=== PATIENT | male | born 1990 | race Caucasian/White ===

== ENCOUNTER 2020-11-15 09:15 | Emergency (ER) | payer OTHER ==
[2020-11-15] MEDS ORDERED: LORazepam 1 MG TAB PO STA (09:45)
[2020-11-15] MEDS ORDERED: KETOROLAC 15 MG/ML 1 ML VIAL IVP STA (10:46)
[2020-11-15] MEDS ORDERED: diphenhydrAMINE 50 MG/ML 1 ML VIAL IVP STA (11:56)
--- NOTE | 2020-11-15 12:30 | ED ---
Anxiety HPI - General Chief Complaint: Anxiety Stated Complaint: Anxiety Time Seen by Provider: 11/15/20 09:24 Source: patient, EMS Mode of arrival: EMS - History of Present Illness Initial Comments: 30-year-old male history of OCD, PTSD, borderline personality disorder presenting to the ER today for chief complaint of insomnia. Patient states the past 3 nights she has not been SEEPING he states he's been very anxious and is upset with his neighbor. Patient states he does drink but doesnt feel like he is withdrawing stating "i am very familar with that feeling, i would be sweating, and have abdominal pain". He denies any headaches or hallucinations. He states he has had occasional nausea and episodes of vomiting which happens with these "panic attacks" or if he forgets to take his protonix which he states he did not take this mroning. Patient denies fevers, diarrhea, black/dark stools or bloody stools. Denies chest pain, dyspnea, dyspnea on exertion, leg swelling, jaundice. Patient states that he believes he just needs to sleep. Patient states he does have back pain, but states this is chronic lower midline. He states when he is anxious he feels all his chronic pains more and usually has worsening back pain during these attacks. Patient denies suicidal or homicidal ideations. Pt states he came in because he just needs to get some sleep> Remaining ROS (-). upon arrival patient does not appear acutely psychotic he is answering questions appropriately. - Related Data Home Medications: Home Medications Medication Instructions Recorded Confirmed Pantoprazole Sodium [Protonix] 40 mg PO DAILY 11/15/20 11/15/20 QUEtiapine [SEROquel] 400 mg PO HS 11/15/20 11/15/20 Vortioxetine Hydrobromide 5 mg PO HS 11/15/20 11/15/20 [Trintellix] Allergies/Adverse Reactions: Allergies Allergy/AdvReac Type Severity Reaction Status Date / Time No Known Allergies Allergy Verified 11/15/20 10:32 Review of Systems ROS Statement: Those systems with pertinent positive or pertinent negative responses have been documented in the HPI. ROS Other: All systems not noted in ROS Statement are negative. Past Medical History Past Medical History: GERD/Reflux Additional Past Medical History / Comment(s): migraines, OCD History of Any Multi-Drug Resistant Organisms: None Reported Past Surgical History: Appendectomy, Cholecystectomy, Hernia Repair, Tonsillectomy Past Psychological History: ADD/ADHD, Anxiety, Bipolar Smoking Status: Current every day smoker Past Alcohol Use History: Occasional Past Drug Use History: Marijuana General Exam - General Exam Comments Initial Comments: General: The patient is awake and alert, in no distress Eye: Pupils are equal, round and reactive to light, extra-ocular movements are intact. No nystagmus. There is normal conjunctiva bilaterally. No signs of icterus. Ears, nose, mouth and throat: There are moist mucous membranes and no oral lesions. Neck: The neck is supple, there is no tenderness or JVD. Cardiovascular: There is a regular rate and rhythm. No murmur, rub or gallop is appreciated. Respiratory: Lungs are clear to auscultation, respirations are non-labored, breath sounds are equal. No wheezes, stridor, rales, or rhonchi. Gastrointestinal: Soft, non-distended, non-tender abdomen without masses or organomegaly noted. There is no rebound or guarding present. No CVA tenderness Musculoskeletal: Some mild paraspinal tenderness to palpation fo the lumbar spine, remaining exam unremarkable, no midline tenderness. No bruising. No redness. Normal ROM, no tenderness. Strength 5/5 of the LE b/l. Sensation intact of the LE b/l-including the saddle region. Radial and DP pulses equal bilaterally 2+. Neurological: A&O x 3. CN II-XII intact grossly, There are no obvious motor or sensory deficits. Coordination appears grossly intact. Speech is normal. Skin: Skin is warm and dry and no rashes or lesions are noted. Psychiatric: Cooperative, appropriate mood & affect, normal judgment. Limitations: no limitations Course Vital Signs 11/15/20 11/15/20 09:23 14:29 Temperature 97.7 F 98 F Pulse Rate 74 86 Respiratory 22 20 Rate Blood Pressure 138/95 131/89 O2 Sat by Pulse 95 99 Oximetry - Reevaluation(s) Reevaluation #1: Episode of coffee ground appearing emesis. pt continues to deny physical complaints, aside from chronic low back pain. abdomen continues to be soft no ntender, no crepitus to palpation of chest wall. Patient states that he KNOWS he is not withdrawing. He states he does take protonix daily and has bad GERD that sometimes causes him to vomit. Missed dose today. 11/15/20 12:41 Medical Decision Making - Medical Decision Making Patient presenting for anxiety/insomnia. Patient has chronic back pain, states it is worse, Chrau flank pain/blood in urine. He states he has had an episode of vomiting today which happens when he gets worked up or doesnt take his protonix-which both are occurring today. Patient had one dark episode of vomiting but states it was the "pepsi" he was drinking. Gastric occult (-). HgB stable. No hypotension/tachycardia. Patient vomiting controlled. Pt does have mild hypokalemia/hypomagensium--both replaced orally. Anxiety improved. Evaluated by EPS who recommended discharge she is can go to his [facility] appointment. Patient agreeable to this care plan and prefers discharge at this time> Discussed case with Dr> Harish who is agreeable to this care plan. - Lab Data Result diagrams: 11/15/20 12:45 11/15/20 12:45 Lab Results 11/15/20 11/15/20 11/15/20 Range/Units 12:38 12:45 12:45 WBC 10.8 H (3.8-10.6) k/uL RBC 4.76 (4.30-5.90) m/uL Hgb 15.9 (13.0-17.5) gm/dL Hct 46.8 (39.0-53.0) % MCV 98.3 (80.0-100.0) fL MCH 33.4 (25.0-35.0) pg MCHC 33.9 (31.0-37.0) g/dL RDW 14.8 (11.5-15.5) % Plt Count 145 L (150-450) k/uL MPV 7.8 Neutrophils % 81 % Lymphocytes % 9 % Monocytes % 7 % Eosinophils % 1 % Basophils % 1 % Neutrophils # 8.8 H (1.3-7.7) k/uL Lymphocytes # 1.0 (1.0-4.8) k/uL Monocytes # 0.8 (0-1.0) k/uL Eosinophils # 0.1 (0-0.7) k/uL Basophils # 0.1 (0-0.2) k/uL PT (9.0-12.0) sec INR (<1.2) APTT (22.0-30.0) sec Sodium 135 L (137-145) mmol/L Potassium 3.1 L (3.5-5.1) mmol/L Chloride 93 L (98-107) mmol/L Carbon Dioxide 29 (22-30) mmol/L Anion Gap 13 mmol/L BUN 9 (9-20) mg/dL Creatinine 0.57 L (0.66-1.25) mg/dL Est GFR (CKD-EPI)AfAm >90 (>60 ml/min/1.73 sqM) Est GFR (CKD-EPI)NonAf >90 (>60 ml/min/1.73 sqM) Glucose 105 H (74-99) mg/dL Calcium 9.0 (8.4-10.2) mg/dL Magnesium (1.6-2.3) mg/dL Total Bilirubin 1.1 (0.2-1.3) mg/dL AST 191 H (17-59) U/L ALT 160 H (4-49) U/L Alkaline Phosphatase 128 H (38-126) U/L Total Protein 7.6 (6.3-8.2) g/dL Albumin 4.7 (3.5-5.0) g/dL Urine Color Yellow Urine Appearance Clear (Clear) Urine pH 6.5 (5.0-8.0) Ur Specific [place] 1.032 (1.001-1.035) Urine Protein 2+ H (Negative) Urine Glucose (UA) Negative (Negative) Urine Ketones 4+ H (Negative) Urine Blood Negative (Negative) Urine Nitrite Negative (Negative) Urine Bilirubin 1+ H (Negative) Urine Urobilinogen 4.0 (<2.0) mg/dL Ur Leukocyte Esterase Negative (Negative) Urine RBC 3 (0-5) /hpf Urine WBC 1 (0-5) /hpf Ur Squamous Epith Cells <1 (0-4) /hpf Hyaline Casts 1 (0-2) /lpf Urine Mucus Many H (None) /hpf Gastric Occult Blood (Negative) Urine Opiates Screen Detected H (NotDetected) Ur Oxycodone Screen Not Detected (NotDetected) Urine Methadone Screen Detected H (NotDetected) Ur Propoxyphene Screen Not Detected (NotDetected) Ur Barbiturates Screen Not Detected (NotDetected) U Tricyclic Antidepress Detected H (NotDetected) Ur Phencyclidine Scrn Not Detected (NotDetected) Ur Amphetamines Screen Not Detected (NotDetected) U Methamphetamines Scrn Not Detected (NotDetected) U Benzodiazepines Scrn Not Detected (NotDetected) Urine Cocaine Screen Detected H (NotDetected) U Marijuana (THC) Screen Detected H (NotDetected) 11/15/20 11/15/20 11/15/20 Range/Units 12:45 12:45 13:10 WBC (3.8-10.6) k/uL RBC (4.30-5.90) m/uL Hgb (13.0-17.5) gm/dL Hct (39.0-53.0) % MCV (80.0-100.0) fL MCH (25.0-35.0) pg MCHC (31.0-37.0) g/dL RDW (11.5-15.5) % Plt Count (150-450) k/uL MPV Neutrophils % % Lymphocytes % % Monocytes % % Eosinophils % % Basophils % % Neutrophils # (1.3-7.7) k/uL Lymphocytes # (1.0-4.8) k/uL Monocytes # (0-1.0) k/uL Eosinophils # (0-0.7) k/uL Basophils # (0-0.2) k/uL PT 10.5 (9.0-12.0) sec INR 1.0 (<1.2) APTT 23.0 (22.0-30.0) sec Sodium (137-145) mmol/L Potassium (3.5-5.1) mmol/L Chloride (98-107) mmol/L Carbon Dioxide (22-30) mmol/L Anion Gap mmol/L BUN (9-20) mg/dL Creatinine (0.66-1.25) mg/dL Est GFR (CKD-EPI)AfAm (>60 ml/min/1.73 sqM) Est GFR (CKD-EPI)NonAf (>60 ml/min/1.73 sqM) Glucose (74-99) mg/dL Calcium (8.4-10.2) mg/dL Magnesium 1.4 L (1.6-2.3) mg/dL Total Bilirubin (0.2-1.3) mg/dL AST (17-59) U/L ALT (4-49) U/L Alkaline Phosphatase (38-126) U/L Total Protein (6.3-8.2) g/dL Albumin (3.5-5.0) g/dL Urine Color Urine Appearance (Clear) Urine pH (5.0-8.0) Ur Specific [place] (1.001-1.035) Urine Protein (Negative) Urine Glucose (UA) (Negative) Urine Ketones (Negative) Urine Blood (Negative) Urine Nitrite (Negative) Urine Bilirubin (Negative) Urine Urobilinogen (<2.0) mg/dL Ur Leukocyte Esterase (Negative) Urine RBC (0-5) /hpf Urine WBC (0-5) /hpf Ur Squamous Epith Cells (0-4) /hpf Hyaline Casts (0-2) /lpf Urine Mucus (None) /hpf Gastric Occult Blood Negative (Negative) Urine Opiates Screen (NotDetected) Ur Oxycodone Screen (NotDetected) Urine Methadone Screen (NotDetected) Ur Propoxyphene Screen (NotDetected) Ur Barbiturates Screen (NotDetected) U Tricyclic Antidepress (NotDetected) Ur Phencyclidine Scrn (NotDetected) Ur Amphetamines Screen (NotDetected) U Methamphetamines Scrn (NotDetected) U Benzodiazepines Scrn (NotDetected) Urine Cocaine Screen (NotDetected) U Marijuana (THC) Screen (NotDetected) Disposition Clinical Impression: Anxiety, Chronic back pain, Insomnia, Vomiting, Cocaine abuse Disposition: HOME SELF-CARE Condition: Good Instructions (If sedation given, give patient instructions): Generalized Anxiety Disorder (ED), Insomnia (ED) Additional Instructions: Please use medication as discussed. Please follow-up with family doctor in the next 2 day. Please follow-up with Please return to emergency room if the symptoms increase or worsen or for any other concerns. Is patient prescribed a controlled substance at d/c from ED?: No Referrals: None,Stated [Primary Care Provider[facility] - [facility]-2 days Time of Disposition: 14:03
[2020-11-15] MEDS ORDERED: ONDANSETRON 4 MG/2 ML VIAL IVP STA (12:39)
[2020-11-15] MEDS ORDERED: PANTOPRAZOLE 40 MG/10 ML VIAL IVP STA (12:40)
[2020-11-15 12:59] LABS: Appearance,Urine Clear (Clear); Bilirubin,Urine 1+ (Negative); Blood,Urine Negative (Negative); Color,Urine Yellow; Glucose,Urine (UA) Negative (Negative); Hyaline Casts,Urine 1 /lpf (0-2); Ketones,Urine 4+ (Negative); Leukocyte Esterase,Urine Negative (Negative); Mucus,Urine Many /hpf; Nitrite,Urine Negative (Negative); PH, Urine 6.5 (5.0-8.0); Protein,Urine 2+ (Negative); RBC,Urine 3 /hpf (0-5); Specific Gravity,Urine 1.032 (1.001-1.035); Squamous Epithelial Cell,Urine <1 /hpf (0-4); WBC,Urine 1 /hpf (0-5)
[2020-11-15 13:04] LABS: Amphetamine Screen,Urine Not Detected (NotDetected); Barbiturate Screen,Urine Not Detected (NotDetected); Benzodiazepines Screen,Urine Not Detected (NotDetected); Cocaine Screen,Urine Detected (NotDetected); Methadone Screen, Urine Detected (NotDetected); Opiate Screen,Urine Detected (NotDetected); Oxycodone Screen, Urine Not Detected (NotDetected); Phencyclidine Screen,Urine Not Detected (NotDetected); Tricyclic Antidepressant,Urine Detected (NotDetected); Urn Cannabinoid Scrn Detected (NotDetected)
[2020-11-15 13:07] LABS: Prothrombin Time 10.5 sec (9.0-12.0)
[2020-11-15 13:13] LABS: ALT 160 U/L (4-49); AST 191 U/L (17-59); African American GFR (CKD) >90 (>60 ml/min/1.73 sqM); Albumin 4.7 g/dL (3.5-5.0); Alkaline Phosphatase 128 U/L (38-126); Anion Gap 13 mmol/L; Blood Urea Nitrogen 9 mg/dL (9-20); Carbon Dioxide 29 mmol/L (22-30); Chloride 93 mmol/L (98-107); Glucose 105 mg/dL (74-99); Non-African American GFR(CKD) >90 (>60 ml/min/1.73 sqM); Potassium 3.1 mmol/L (3.5-5.1); Sodium 135 mmol/L (137-145); Total Bilirubin 1.1 mg/dL (0.2-1.3); Total Protein 7.6 g/dL (6.3-8.2)
[2020-11-15 13:14] LABS: Basophils # (A) 0.1 k/uL (0-0.2); Basophils % (A) 1 %; Eosinophils # (A) 0.1 k/uL (0-0.7); Eosinophils % (A) 1 %; HCT 46.8 % (39.0-53.0); HGB 15.9 gm/dL (13.0-17.5); Lymphocytes % (A) 9 %; MCH 33.4 pg (25.0-35.0); MCHC 33.9 g/dL (31.0-37.0); MCV 98.3 fL (80.0-100.0); Mean Platelet Volume 7.8; Monocytes # (A) 0.8 k/uL (0-1.0); Monocytes % (A) 7 %; Neutrophils # (A) 8.8 k/uL (1.3-7.7); Neutrophils % (A) 81 %; Platelet Count 145 k/uL (150-450); RBC 4.76 m/uL (4.30-5.90); RDW 14.8 % (11.5-15.5); WBC 10.8 k/uL (3.8-10.6)
[2020-11-15] MEDS ORDERED: POTASSIUM CHLORIDE ER 20 MEQ TAB.ER PO STA (13:27)
[2020-11-15] MEDS ORDERED: SODIUM CHLORIDE 0.9% 1,000 ML IV ONE (13:37)
[2020-11-15] MEDS ORDERED: MAGNESIUM OXIDE 400 MG TAB PO STA (13:55)
[2020-11-15 14:31] VITALS: BP 131/89; PULSE 86; RESP 20; TEMP 98
== END 2020-11-15 14:31 | disposition home or self-care (01) ==
LOC: EC 09:15
DX: F41.9 Anxiety disorder, unspecified (principal); R11.10 Vomiting, unspecified; M54.9 Dorsalgia, unspecified; G89.29 Other chronic pain; G47.00 Insomnia, unspecified; F14.10 Cocaine abuse, uncomplicated; K21.9 Gastro-esophageal reflux disease without esophagitis; F31.9 Bipolar disorder, unspecified; F12.90 Cannabis use, unspecified, uncomplicated; F17.200 Nicotine dependence, unspecified, uncomplicated; Z90.49 Acquired absence of other specified parts of digestive tract; Z90.09 Acquired absence of other part of head and neck
CPT/HCPCS: 82075; 36415; 80053; 83735; 85025; 85610; 85730; 82271; 81001; 80306; 99283; 96361; 96374; 96375; J1200; J2405; J1885; C9113

== ENCOUNTER 2020-11-26 15:36 | Emergency (ER) | payer OTHER ==
[2020-11-26 16:09] VITALS: BP 155/98; PULSE 117; RESP 18; TEMP 97.9
--- NOTE | 2020-11-26 16:19 | ED ---
General Adult HPI - General Chief complaint: Recheck/Abnormal Lab/Rx Stated complaint: Nausea, Vomiting Time Seen by Provider: 11/26/20 16:12 Source: patient Mode of arrival: ambulatory Limitations: no limitations - History of Present Illness Initial comments: Dictation was produced using edenes dictation software. please excuse any gr ammatical, word or spelling errors. This patient was cared for during a federal and state declared state of emergency secondary to Covid 19 Chief Complaint: 30-year-old male presents for Protonix refill History of Present Illness: Patient is a 30-year-old male who recently moved to [place]. Patient states he has a prescription for Protonix. 640 mg daily. Patient states he has regular reflux symptoms. He is in the middle of changing primary care physicians. Patient has no medical complaints at this time. The ROS documented in this emergency department record has been reviewed and confirmed by me. Those systems with pertinent positive or negative responses have been documented in the HPI. All other systems are other negative and/or noncontributory. PHYSICAL EXAM: General Impression: Alert and oriented x3, not in acute distress HEENT: Normocephalic atraumatic, extra-ocular movements intact, pupils equal and reactive to light bilaterally, mucous membranes moist. Cardiovascular: Heart regular rate and rhythm Chest: Able to complete full sentences, no retractions, no tachypnea Abdomen: abdomen soft, non-tender, non-distended, no organomegaly Musculoskeletal: Pulses present and equal in all extremities, no peripheral edema Motor: no focal deficits noted Neurological: CN II-XII grossly intact, no focal motor or sensory deficits noted Skin: Intact with no visualized rashes Psych: Normal affect and mood ED course: [id number] Male presents for request for Protonix refill. Vital signs upon arrival are within acceptable limits. Physical examination is b enign. Patient given refill. Is also given referral to GI for outpatient management of his reflux symptoms. - Related Data Home Medications Medication Instructions Recorded Confirmed Pantoprazole Sodium [Protonix] 40 mg PO DAILY 11/15/20 11/15/20 QUEtiapine [SEROquel] 400 mg PO HS 11/15/20 11/15/20 Vortioxetine Hydrobromide 5 mg PO HS 11/15/20 11/15/20 [Trintellix] Previous Rx's Medication Instructions Recorded Pantoprazole Sodium [Protonix] 40 mg PO DAILY 24 Days #24 11/26/20 tablet. Allergies Allergy/AdvReac Type Severity Reaction Status Date / Time No Known Allergies Allergy Verified 11/26/20 16:05 Review of Systems ROS Statement: Those systems with pertinent positive or pertinent negative responses have been documented in the HPI. ROS Other: All systems not noted in ROS Statement are negative. Past Medical History Past Medical History: GERD/Reflux Additional Past Medical History / Comment(s): migraines, OCD History of Any Multi-Drug Resistant Organisms: None Reported Past Surgical History: Appendectomy, Cholecystectomy, Hernia Repair, Tonsillectomy Past Psychological History: ADD/ADHD, Anxiety, Bipolar Smoking Status: Current every day smoker Past Alcohol Use History: Occasional Past Drug Use History: Marijuana General Exam Limitations: no limitations Course Vital Signs 11/26/20 16:05 Temperature 97.9 F Pulse Rate 117 H Respiratory 18 Rate Blood Pressure 155/98 O2 Sat by Pulse 97 Oximetry Disposition Clinical Impression: Encounter for medication refill Disposition: HOME SELF-CARE Condition: Good Instructions (If sedation given, give patient instructions): Gastroesophageal Reflux Disease (ED) Prescriptions: Pantoprazole Sodium [Protonix] 40 mg PO DAILY 24 Days #24 tablet. Is patient prescribed a controlled substance at d/c from ED?: No Referrals: David Varghese MD [STAFF PHYSICIAN] - 1-2 days Time of Disposition: 16:19
== END 2020-11-26 16:30 | disposition home or self-care (01) ==
LOC: EC 15:36
DX: Z76.0 Encounter for issue of repeat prescription (principal); F41.9 Anxiety disorder, unspecified; F32.9 Major depressive disorder, single episode, unspecified; F17.200 Nicotine dependence, unspecified, uncomplicated; K21.9 Gastro-esophageal reflux disease without esophagitis
CPT/HCPCS: 99283

== ENCOUNTER 2021-02-15 09:34 | Emergency (ER) | payer OTHER ==
[2021-02-15] MEDS ORDERED: SODIUM CHLORIDE 0.9% 1,000 ML IV STA (10:05)
[2021-02-15 10:12] LABS: Glucose,Whole Blood 153 mg/dL (75-99)
--- NOTE | 2021-02-15 10:15 | ED ---
General Adult HPI - General Chief complaint: Fall Stated complaint: Syncope/Possible Seizures Time Seen by Provider: 02/15/21 09:55 Source: patient, EMS Mode of arrival: EMS Limitations: no limitations - History of Present Illness Initial comments: 30 year-old male patient presents to the emergency department for evaluation after possibly having a seizure. Patient was at the store. [employer] reports that he was about to check out when he "fainted", reportedly he did exhibit some body twitching, and was confused when he woke up. Patient did bite his lip and tongue. Denies any loss of bowel or bladder control. Patient denies ever having a seizure in the past. Does admit to drinking a pint of alcohol three times weekly. States he did have a pint of vodka at around 0800 this morning. He denies any current headache, blurred vision, double vision, nausea, or vomiting. Denies any recent diarrhea, fever, or chills. Denies chest pain or shortness of breath. Patient denies any recent rash, cough, shortness of breath, chest pain, abdominal pain, constipation, back pain, numbness, tingling, dizziness, weakness, hematuria, dysuria, urinary urgency, urinary frequency, or any other complaints. - Related Data Home Medications Medication Instructions Recorded Confirmed QUEtiapine FUMARATE [SEROquel] 600 mg PO HS 02/15/21 02/15/21 Vortioxetine Hydrobromide 20 mg PO HS 02/15/21 02/15/21 [Trintellix] Previous Rx's Medication Instructions Recorded Pantoprazole Sodium [Protonix] 40 mg PO DAILY 24 Days #24 11/26/20 tablet. Allergies Allergy/AdvReac Type Severity Reaction Status Date / Time No Known Allergies Allergy Verified 02/15/21 11:08 Review of Systems ROS Statement: Those systems with pertinent positive or pertinent negative responses have been documented in the HPI. ROS Other: All systems not noted in ROS Statement are negative. Past Medical History Past Medical History: GERD/Reflux, Seizure Disorder Additional Past Medical History / Comment(s): migraines, OCD History of Any Multi-Drug Resistant Organisms: None Reported Past Surgical History: Appendectomy, Cholecystectomy, Hernia Repair, Tonsillectomy Additional Past Surgical History / Comment(s): 7 hernias Past Psychological History: ADD/ADHD, Anxiety, Bipolar Smoking Status: Current every day smoker Past Alcohol Use History: Heavy, Occasional Past Drug Use History: Marijuana General Exam Limitations: no limitations General appearance: alert, in no apparent distress Eye exam: Present: normal appearance, PERRL, EOMI. Absent: scleral icterus, conjunctival injection, periorbital swelling ENT exam: Present: normal exam, normal oropharynx, mucous membranes moist Respiratory exam: Present: normal lung sounds bilaterally. Absent: respiratory distress, wheezes, rales, rhonchi, stridor Cardiovascular Exam: Present: regular rate, normal rhythm, normal heart sounds. Absent: systolic murmur, diastolic murmur, rubs, gallop, clicks GI/Abdominal exam: Present: soft, normal bowel sounds. Absent: distended, tenderness, guarding, rebound, rigid Neurological exam: Present: alert, oriented X3, CN II-XII intact Psychiatric exam: Present: normal affect, normal mood Skin exam: Present: warm, dry, intact, normal color. Absent: rash Course Vital Signs 02/15/21 02/15/21 09:38 11:32 Temperature 98.5 F 97.0 F L Pulse Rate 86 80 Respiratory 20 18 Rate Blood Pressure 143/93 139/103 O2 Sat by Pulse 94 L 96 Oximetry EKG Findings - EKG Comments: EKG Findings:: EKG obtained at 957 shows normal sinus rhythm with a prolonged QT interval. Ventricular is 72, MD interval 128, QRS duration 92, QTc 464, QTC 508. No evidence of ST elevation or depression. Medical Decision Making - Medical Decision Making 30 year-old male patient presented for syncope vs seizure. Physical exam is unremarkable. He is neurologically intact, no focal deficits. Labs reviewed and showed critically low potassium. Transaminitis. Normal magnesium. EKG showed prolonged QT interval. Plan was for admission for possible alcohol withdrawal seizure and hypokalemia. While waiting for test results patient did refuse all further care and treatment and left AGAINST MEDICAL ADVICE. I was not able to speak to the patient prior to his leaving however I did call him and informed him of his lab results, discussed his critically low potassium and discussed risk of possible arrhythmia and due to this. Patient stated, "I underst and, I'll come back another day but not today". I reiterated the risks of not returning. Patient again verbalized understanding. He is instructed to return as soon as possible for further care and treatment. Case discussed with my attending Dr. Cooper. - Lab Data Result diagrams: 02/15/21 10:11 02/15/21 10:11 Lab Results 02/15/21 02/15/21 02/15/21 Range/Units 10:05 10:11 10:11 WBC 7.6 (3.8-10.6) k/uL RBC 4.34 (4.30-5.90) m/uL Hgb 15.1 (13.0-17.5) gm/dL Hct 44.1 (39.0-53.0) % MCV 101.7 H (80.0-100.0) fL MCH 34.9 (25.0-35.0) pg MCHC 34.3 (31.0-37.0) g/dL RDW 13.9 (11.5-15.5) % Plt Count 82 L (150-450) k/uL MPV 9.2 Neutrophils % 79 % Lymphocytes % 10 % Monocytes % 9 % Eosinophils % 1 % Basophils % 1 % Neutrophils # 6.0 (1.3-7.7) k/uL Lymphocytes # 0.7 L (1.0-4.8) k/uL Monocytes # 0.7 (0-1.0) k/uL Eosinophils # 0.1 (0-0.7) k/uL Basophils # 0.1 (0-0.2) k/uL Manual Slide Review Performed Macrocytosis Slight Sodium 132 L (137-145) mmol/L Potassium 2.7 L* (3.5-5.1) mmol/L Chloride 88 L (98-107) mmol/L Carbon Dioxide 22 (22-30) mmol/L Anion Gap 22 mmol/L BUN 7 L (9-20) mg/dL Creatinine 0.56 L (0.66-1.25) mg/dL Est GFR (CKD-EPI)AfAm >90 (>60 ml/min/1.73 sqM) Est GFR (CKD-EPI)NonAf >90 (>60 ml/min/1.73 sqM) Glucose 145 H (74-99) mg/dL POC Glucose (mg/dL) 153 H (75-99) mg/dL POC Glu Manager Behavioral ID Giancarlo Melgar Calcium 8.8 (8.4-10.2) mg/dL Phosphorus 3.6 (2.5-4.5) mg/dL Magnesium 2.2 (1.6-2.3) mg/dL Total Bilirubin 2.3 H (0.2-1.3) mg/dL AST 300 H (17-59) U/L ALT 163 H (4-49) U/L Alkaline Phosphatase 230 H (38-126) U/L Total Protein 7.2 (6.3-8.2) g/dL Albumin 4.7 (3.5-5.0) g/dL Serum Alcohol <10 mg/dL Disposition Clinical Impression: Hypokalemia, Seizure, Transaminitis Disposition: Left Against Medical Advice Condition: Undetermined Referrals: None,Stated [Primary Care Provider] - 1-2 days
[2021-02-15] MEDS ORDERED: DIAZEPAM 5 MG/ML 2 ML INJ IVP STA ×2 (10:35→10:41)
[2021-02-15 10:51] LABS: African American GFR (CKD) >90 (>60 ml/min/1.73 sqM); Albumin 4.7 g/dL (3.5-5.0); Alcohol <10 mg/dL; Alkaline Phosphatase 230 U/L (38-126); Anion Gap 22 mmol/L; Basophils # (A) 0.1 k/uL (0-0.2); Basophils % (A) 1 %; Blood Urea Nitrogen 7 mg/dL (9-20); Calcium 8.8 mg/dL (8.4-10.2); Carbon Dioxide 22 mmol/L (22-30); Chloride 88 mmol/L (98-107); Eosinophils # (A) 0.1 k/uL (0-0.7); Eosinophils % (A) 1 %; Glucose 145 mg/dL (74-99); HCT 44.1 % (39.0-53.0); HGB 15.1 gm/dL (13.0-17.5); Lymphocytes # (A) 0.7 k/uL (1.0-4.8); Lymphocytes % (A) 10 %; MCH 34.9 pg (25.0-35.0); MCHC 34.3 g/dL (31.0-37.0); MCV 101.7 fL (80.0-100.0); Macrocytosis Slight; Magnesium 2.2 mg/dL (1.6-2.3); Mean Platelet Volume 9.2; Monocytes # (A) 0.7 k/uL (0-1.0); Monocytes % (A) 9 %; Neutrophils % (A) 79 %; Non-African American GFR(CKD) >90 (>60 ml/min/1.73 sqM); Phosphorus 3.6 mg/dL (2.5-4.5); RBC 4.34 m/uL (4.30-5.90); RDW 13.9 % (11.5-15.5); Sodium 132 mmol/L (137-145); Total Bilirubin 2.3 mg/dL (0.2-1.3); Total Protein 7.2 g/dL (6.3-8.2); WBC 7.6 k/uL (3.8-10.6)
[2021-02-15 11:05] LABS: ALT 163 U/L (4-49); AST 300 U/L (17-59); Potassium 2.7 mmol/L (3.5-5.1)
[2021-02-15 11:20] LABS: Platelet Count 82 k/uL (150-450)
[2021-02-15] MEDS ORDERED: Potassium Replacement Protocol 1 EACH MISC MISCELLANE PRN (11:24)
[2021-02-15] MEDS ORDERED: THIAMINE 100 MG/ML 2 ML VIAL IM STA (11:25)
[2021-02-15] MEDS ORDERED: LORazepam 2 MG/ML INJ IV PRN ×3 (11:25)
[2021-02-15 11:33] VITALS: BP 139/103; PULSE 80; RESP 18; TEMP 97
[2021-02-15] MEDS ORDERED: POTASSIUM CHLORIDE 10 MEQ in WATER FOR INJECTION 1 100ML.BAG IVPB SCH (12:00)
[2021-02-15] MEDS ORDERED: THIAMINE 100 MG TAB PO SCH (17:30)
== END 2021-02-15 11:42 | disposition left against medical advice (07) ==
LOC: EC 09:34
DX: E87.6 Hypokalemia (principal); R56.9 Unspecified convulsions; R74.01 Elevation of levels of liver transaminase levels; R55 Syncope and collapse; R41.0 Disorientation, unspecified; K21.9 Gastro-esophageal reflux disease without esophagitis; F17.200 Nicotine dependence, unspecified, uncomplicated; F12.90 Cannabis use, unspecified, uncomplicated; F41.9 Anxiety disorder, unspecified; F31.9 Bipolar disorder, unspecified
CPT/HCPCS: 36415; 80053; 80320; 83735; 84100; 85025; 93005; 96361; 96374; 99284

== ENCOUNTER 2021-05-04 10:25 | Inpatient (IN) | payer OTHER ==
[2021-05-04] MEDS ORDERED: LORazepam 2 MG/ML INJ IV PRN (10:43)
[2021-05-04] MEDS ORDERED: LORazepam 2 MG/ML INJ IV STA (10:43)
[2021-05-04] MEDS ORDERED: SODIUM CHLORIDE 0.9% 1,000 ML IV ONE (10:46)
--- NOTE | 2021-05-04 10:46 | ED ---
Psych HPI - General Chief Complaint: Psychiatric Symptoms Stated Complaint: mental health Time Seen by Provider: 05/04/21 10:34 Source: patient, RN notes reviewed Mode of arrival: wheelchair Limitations: no limitations - History of Present Illness Initial Comments: This a 30-year-old male present emergency from chief complaint of depression, suicidal ideation, alcohol abuse. Patient has not been feeling well possibly had a fall, seizure versus syncopal episode last night. Patient woke up with lip laceration, facial contusions and abrasions. He is unsure how this happened. He states he drinks multiple pints per day. Patient is brought to emergency department by [facility]. Patient does have a history of hypomagnesemia, hypokalemia, transaminitis. - Related Data Home Medications Medication Instructions Recorded Confirmed QUEtiapine FUMARATE [SEROquel] 600 mg PO HS 02/15/21 05/04/21 Vortioxetine Hydrobromide 20 mg PO HS 02/15/21 05/04/21 [Trintellix] Aspirin/Acetaminophen/Caffeine 1 tab PO DAILY PRN 05/04/21 05/04/21 [Excedrin Migraine Caplet] Mirtazapine [Remeron] 15 mg PO HS 05/04/21 05/04/21 Previous Rx's Medication Instructions Recorded Pantoprazole Sodium [Protonix] 40 mg PO DAILY 24 Days #24 11/26/20 tablet. Allergies Allergy/AdvReac Type Severity Reaction Status Date / Time No Known Allergies Allergy Verified 05/04/21 12:03 Review of Systems ROS Statement: Those systems with pertinent positive or pertinent negative responses have been documented in the HPI. ROS Other: All systems not noted in ROS Statement are negative. Past Medical History Past Medical History: GERD/Reflux, Seizure Disorder Additional Past Medical History / Comment(s): migraines, OCD History of Any Multi-Drug Resistant Organisms: None Reported Past Surgical History: Appendectomy, Cholecystectomy, Hernia Repair, Tonsillectomy Additional Past Surgical History / Comment(s): 7 hernias Past Psychological History: ADD/ADHD, Anxiety, Bipolar Smoking Status: Current every day smoker Past Alcohol Use History: Abuse, Daily, Heavy Past Drug Use History: Marijuana General Exam Limitations: no limitations General appearance: alert, in no apparent distress Head exam: Present: atraumatic, normocephalic, normal inspection Eye exam: Present: normal appearance, PERRL, EOMI. Absent: scleral icterus, conjunctival injection, periorbital swelling ENT exam: Present: normal oropharynx, mucous membranes moist. Absent: normal exam (Multiple facial abrasions, ecchymotic areas, small lip laceration superficial) Neck exam: Present: normal inspection. Absent: tenderness, meningismus, lymphadenopathy Respiratory exam: Present: normal lung sounds bilaterally. Absent: respiratory distress, wheezes, rales, rhonchi, stridor Cardiovascular Exam: Present: normal rhythm, tachycardia, normal heart sounds. Absent: systolic murmur, diastolic murmur, rubs, gallop, clicks GI/Abdominal exam: Present: soft, normal bowel sounds. Absent: distended, tenderness, guarding, rebound, rigid Course Vital Signs 05/04/21 05/04/21 05/04/21 10:28 12:27 12:34 Temperature 98.2 F 99.1 F Pulse Rate 125 H 99 Respiratory 20 16 Rate Blood Pressure 125/85 121/85 O2 Sat by Pulse 96 95 Oximetry Medical Decision Making - Medical Decision Making CT of brain, facial bones show no acute abnormality. Patient found to have hypokalemia, hyponatremia with alcoholic hepatitis. Patient was ordered potassium replacement, IV fluids was placed on CIWA with Ativan withdrawal protocol - Lab Data Result diagrams: 05/04/21 11:05 05/04/21 11:05 Lab Results 05/04/21 05/04/21 Range/Units 11:05 11:05 WBC 6.5 (3.8-10.6) k/uL RBC 4.08 L (4.30-5.90) m/uL Hgb 15.0 (13.0-17.5) gm/dL Hct 43.5 (39.0-53.0) % MCV 106.8 H (80.0-100.0) fL MCH 36.9 H (25.0-35.0) pg MCHC 34.6 (31.0-37.0) g/dL RDW 14.5 (11.5-15.5) % Plt Count 42 L (150-450) k/uL MPV 12.3 Neutrophils % 88 % Lymphocytes % 6 % Monocytes % 5 % Eosinophils % 0 % Basophils % 0 % Neutrophils # 5.7 (1.3-7.7) k/uL Lymphocytes # 0.4 L (1.0-4.8) k/uL Monocytes # 0.3 (0-1.0) k/uL Eosinophils # 0.0 (0-0.7) k/uL Basophils # 0.0 (0-0.2) k/uL Manual Slide Review Performed Hypochromasia Slight Poikilocytosis Slight Macrocytosis Moderate Sodium 127 L (137-145) mmol/L Potassium 2.7 L* (3.5-5.1) mmol/L Chloride 85 L (98-107) mmol/L Carbon Dioxide 30 (22-30) mmol/L Anion Gap 12 mmol/L BUN 4 L (9-20) mg/dL Creatinine 0.52 L (0.66-1.25) mg/dL Est GFR (CKD-EPI)AfAm >90 (>60 ml/min/1.73 sqM) Est GFR (CKD-EPI)NonAf >90 (>60 ml/min/1.73 sqM) Glucose 196 H (74-99) mg/dL Calcium 8.0 L (8.4-10.2) mg/dL Magnesium 1.5 L (1.6-2.3) mg/dL Total Bilirubin 3.1 H (0.2-1.3) mg/dL AST 481 H (17-59) U/L ALT 90 H (4-49) U/L Alkaline Phosphatase 489 H (38-126) U/L Total Protein 6.1 L (6.3-8.2) g/dL Albumin 3.4 L (3.5-5.0) g/dL Lipase 320 H (23-300) U/L Serum Alcohol <10 mg/dL - EKG Data -: EKG Interpreted by Nd EKG Comments: EKG performed at 12:41 sinus tachycardia rate of 113 NE 138 QRS 82 QT/QTC 376/515 Critical Care Time Critical Care Time: Yes Total Critical Care Time: 35 Disposition Clinical Impression: Depression, Hypomagnesemia, Hypokalemia, Alcohol withdrawal, Facial contusion, Alcoholic hepatitis Disposition: ADMITTED IP TO THIS [facility] Condition: Fair Referrals: None,Stated [REFERRING] - 1-2 days
[2021-05-04] MEDS ORDERED: SODIUM CHLORIDE 0.9% 1,000 ML with MVI, ADULT NO.4 WITH VIT K 10 ML, THIAMINE 100 MG, F... IV ONE ×4 (11:15)
--- NOTE | 2021-05-04 11:40 | CT ---
EXAMINATION TYPE: CT brain wo con DATE OF EXAM: 05/04/2021 COMPARISON: None HISTORY: Seizure per patient. Multiple facial injuries. CT DLP: 1379.4 mGycm. Automated Exposure Control for Dose Reduction was Utilized. TECHNIQUE: CT scan of the head is performed without contrast. FINDINGS: There is no acute intracranial hemorrhage, mass effect, or midline shift identified. The ventricles and sulci are within normal limits in size. The globes are intact and the visualized sin uses are clear. There is preseptal soft tissue edema overlying the left orbit. Craniocervical junction maintained. Sella turcica has a normal appearance. IMPRESSION: No acute intracranial hemorrhage, mass effect, or midline shift is seen.
--- NOTE | 2021-05-04 11:44 | CT ---
EXAMINATION TYPE: CT facial bones wo con DATE OF EXAM: 05/04/2021 COMPARISON: None HISTORY: Seizure per patient. Multiple facial injuries. CT DLP: 1375 mGycm Automated exposure control for dose reduction was used. TECHNIQUE: CT scan of the sinuses is performed without contrast, axial images are obtained, coronal r eformatted images are also reviewed. FINDINGS: The paranasal sinuses including the frontal, ethmoid, sphenoid, and maxillary sinuses bila terally are well-aerated without abnormal opacification. The ostiomeatal complex is patent bilateral ly on the coronal images. Visualized portion of mastoid air cells show no abnormal opacification. The globes are intact bilate rally. Difficult of the C1 posterior elements. Prevertebral soft tissue edema suspected overlying t he frontal bone and left orbit greater than right. Orbits are intact. Changes of chronic mild sinusit is. IMPRESSION: 1. No acute fracture.
[2021-05-04 11:48] LABS: Basophils % (A) 0 %; Eosinophils % (A) 0 %; HCT 43.5 % (39.0-53.0); Hypochromasia Slight; Lymphocytes # (A) 0.4 k/uL (1.0-4.8); Lymphocytes % (A) 6 %; MCH 36.9 pg (25.0-35.0); MCHC 34.6 g/dL (31.0-37.0); MCV 106.8 fL (80.0-100.0); Macrocytosis Moderate; Mean Platelet Volume 12.3; Monocytes # (A) 0.3 k/uL (0-1.0); Monocytes % (A) 5 %; Neutrophils # (A) 5.7 k/uL (1.3-7.7); Neutrophils % (A) 88 %; Poikilocytosis Slight; RBC 4.08 m/uL (4.30-5.90); RDW 14.5 % (11.5-15.5); WBC 6.5 k/uL (3.8-10.6)
[2021-05-04 11:58] LABS: ALT 90 U/L (4-49); AST 481 U/L (17-59); African American GFR (CKD) >90 (>60 ml/min/1.73 sqM); Albumin 3.4 g/dL (3.5-5.0); Alcohol <10 mg/dL; Alkaline Phosphatase 489 U/L (38-126); Anion Gap 12 mmol/L; Blood Urea Nitrogen 4 mg/dL (9-20); Carbon Dioxide 30 mmol/L (22-30); Chloride 85 mmol/L (98-107); Glucose 196 mg/dL (74-99); Lipase 320 U/L (23-300); Magnesium 1.5 mg/dL (1.6-2.3); Non-African American GFR(CKD) >90 (>60 ml/min/1.73 sqM); Sodium 127 mmol/L (137-145); Total Bilirubin 3.1 mg/dL (0.2-1.3); Total Protein 6.1 g/dL (6.3-8.2)
[2021-05-04 12:11] LABS: Potassium 2.7 mmol/L (3.5-5.1)
[2021-05-04] MEDS ORDERED: POTASSIUM CHLORIDE 40 MEQ in WATER FOR INJECTION 1 100ML.BAG IVPB STA (12:18)
[2021-05-04] MEDS ORDERED: POTASSIUM CHLORIDE ER 20 MEQ TAB.ER PO STA (12:23)
[2021-05-04 13:00] LABS: Platelet Count 42 k/uL (150-450)
[2021-05-04] MEDS ORDERED: MAGNESIUM SULFATE-D5W PMX 1 GM in DEXTROSE/WATER 1 100ML.BAG IVPB ONE (13:02)
[2021-05-04] MEDS ORDERED: ONDANSETRON 4 MG/2 ML VIAL IVP PRN (13:04)
[2021-05-04] MEDS ORDERED: NALOXONE 0.4 MG/ML 1 ML VIAL IV PRN (13:04)
[2021-05-04] MEDS: POTASSIUM CHLORIDE 20 MEQ in SODIUM CHLORIDE 0.9% 100 ML IVPB SCH ×2 (13:29→15:27)
[2021-05-04] MEDS ORDERED: DIPH,PERTUS(ACELL)TETVAC-LF 0.5 ML VIAL IM ONE (13:32)
[2021-05-04 14:14] LABS: Appearance,Urine Clear (Clear); Bilirubin,Urine Negative (Negative); Blood,Urine Negative (Negative); Color,Urine Yellow; Glucose,Urine (UA) Negative (Negative); Ketones,Urine Negative (Negative); Leukocyte Esterase,Urine Negative (Negative); Nitrite,Urine Negative (Negative); Protein,Urine Negative (Negative); Specific Gravity,Urine 1.006 (1.001-1.035)
[2021-05-04 14:39] LABS: Amphetamine Screen,Urine Not Detected (NotDetected); Benzodiazepines Screen,Urine Not Detected (NotDetected); Cocaine Screen,Urine Not Detected (NotDetected); Opiate Screen,Urine Not Detected (NotDetected); Phencyclidine Screen,Urine Not Detected (NotDetected); Urn Cannabinoid Scrn Detected (NotDetected)
[2021-05-04 14:40] LABS: Barbiturate Screen,Urine Not Detected (NotDetected); Methadone Screen, Urine Not Detected (NotDetected); Oxycodone Screen, Urine Not Detected (NotDetected); Tricyclic Antidepressant,Urine Detected (NotDetected)
[2021-05-04] MEDS: LORazepam 2 MG/ML INJ IV PRN ×2 (19:27→23:03)
[2021-05-05] MEDS: LORazepam 2 MG/ML INJ IV PRN ×7 (02:28→13:07)
[2021-05-05 09:51] LABS: Basophils % (A) 1 %; Eosinophils # (A) 0.1 k/uL (0-0.7); Eosinophils % (A) 2 %; HGB 13.6 gm/dL (13.0-17.5); Lymphocytes # (A) 1.2 k/uL (1.0-4.8); Lymphocytes % (A) 23 %; MCH 37.7 pg (25.0-35.0); Macrocytosis Moderate; Mean Platelet Volume 13.1; Monocytes # (A) 0.4 k/uL (0-1.0); Monocytes % (A) 8 %; Neutrophils # (A) 3.3 k/uL (1.3-7.7); Neutrophils % (A) 65 %; RBC 3.62 m/uL (4.30-5.90); RDW 13.5 % (11.5-15.5); WBC 5.1 k/uL (3.8-10.6)
[2021-05-05 09:53] LABS: ALT 72 U/L (4-49); AST 300 U/L (17-59); African American GFR (CKD) >90 (>60 ml/min/1.73 sqM); Albumin 2.8 g/dL (3.5-5.0); Alkaline Phosphatase 373 U/L (38-126); Anion Gap 5 mmol/L; Blood Urea Nitrogen 5 mg/dL (9-20); Calcium 8.1 mg/dL (8.4-10.2); Carbon Dioxide 29 mmol/L (22-30); Chloride 100 mmol/L (98-107); Globulin 2.7 g/dL; Glucose 99 mg/dL (74-99); Non-African American GFR(CKD) >90 (>60 ml/min/1.73 sqM); Potassium 3.2 mmol/L (3.5-5.1); Sodium 134 mmol/L (137-145); Total Bilirubin 2.8 mg/dL (0.2-1.3); Total Protein 5.5 g/dL (6.3-8.2)
[2021-05-05 11:20] LABS: Large Platelets Present; Platelet Count 38 k/uL (150-450)
--- NOTE | 2021-05-05 14:15 | P.CN ---
Psychiatric Consult - . Consult date: 05/05/21 Consult:: 05/05/21 14:14 IDENTIFYING DATA: This patient is a single, on Social Security, 30-year-old male who was admitted to the hospital for depression, suicidal ideation, and alcohol abuse. HISTORY OF PRESENT ILLNESS: The patient presented to the hospital on 05/04/21, brought to the emergency department on the recommendation of his case management social worker after the patient endorsed worsening depression and suicidal ideation. Furthermore, the patient most recently had a syncopal episode which resulted in multiple lacerations, abrasions, contusions on his face. The patient reports that his case management social worker was increasingly worried about his depression. Patient states that he has "always dealt with depression." He reports that for the past year, he has been expressing worsening depression with symptoms of decreased sleep, decreased appetite, feelings of hopelessness, helplessness, and decreased hygiene. Furthermore, the patient does admit that he had some suicidal ideation but no active intention or plan. He reports that he just had thoughts "that it would be better off if he was just not present." He denies any prior attempts at suicide. He does endorse significant symptoms of bipolar disorder. He reports that he would be awake for 3-4 days with little to no sleep. He does state that during these times, the patient does experience some manic symptoms including racing thoughts, impulsivity, and excessive spending. Prior to his presentation at the hospital, the patient is prescribed a regimen of trintellix, Remeron, and Seroquel. He reports that he was only taking the Seroquel as he felt like the other 2 medications provided no benefit at all. The patient is also facing eviction at the end of this month causing him elevated anxiety and depression. The patient reports that he was likely to go to a three quarter house at the recommendation of his therapist. The patient states that he would not like to be admitted to the psychiatric unit. He reports that he just wants to smoke a cigarette. He was informed that he is likely to be admitted involuntarily to which she responds that he would be "very angry if I was." The patient does report a significant history of traumatic brain injuries. He states that there have been multiple concussions when he was much younger. He denies any significant history of physical, sexual, or emotional abuse. PAST PSYCHIATRIC HISTORY: Patient has a history of depression, alcohol use disorder, opiate use disorder, and anxiety. The patient reports that he has been on "every antidepressant and every antianxiety medication there is." The patient reports that he has had 4 or 5 inpatient psychiatric admissions but is uncertain of when he was last admitted. The patient reports he has a case management social worker and therapist. Patient denies any history of suicide attempts in the past. PAST MEDICAL HISTORY: Past Medical History: GERD/Reflux, Seizure Disorder Additional Past Medical History / Comment(s): migraines, OCD History of Any Multi-Drug Resistant Organisms: None Reported Past Surgical History: Appendectomy, Cholecystectomy, Hernia Repair, Tonsillectomy Additional Past Surgical History / Comment(s): 7 hernias Past Psychological History: ADD/ADHD, Anxiety, Bipolar Smoking Status: Current every day smoker Past Alcohol Use History: Abuse, Daily, Heavy Past Drug Use History: Marijuana ALLERGIES: as per EMR. CHEMICAL DEPENDENCY HISTORY: The patient engages in heavy substance abuse. He reports he smokes 2-3 packs per day. The patient further consumes 1-2 pints of hard liquor per day. He also states that he has daily marijuana use. He has previously abused heroin and opiates but states that this has not been for many years. He states that he began using substances such as alcohol and marijuana when he was 8 years old. FAMILY PSYCHIATRIC/SUBSTANCE USE HISTORY: The patient reports that "everyone in my family has mental health problems." He reports no history of Suicide. SOCIAL HISTORY: Patient was born and raised in [place], [place]. He currently lives by himself but is being evicted at the end of this month. He has been intrusive into rehabilitation for heroin abuse but this was many years ago. He currently collects Social Security. He is single with no children.. MENTAL STATUS EXAM: General Appearance: Patient appears to be stated age is alert, obstinate and uncooperative. Patient appears to have very poor hygiene and grooming wearing hospital gown with poor eye contact. Behavior: Patient is calmly lying in bed without any agitated behavior. Eye contact is poor. Psychomotor activity is slow. Speech: Patient's speech is fluent and nonpressured. Spontaneous, monotone, slow to respond. Mood/Affect: Patient reports their mood is "depressed", affect is congruent, irritable, dysphoric. Suicidality/Homicidality: Patient denies having any suicidal or homicidal ideation intent or plan. Perceptions: Patient denies any visual hallucinations and denies any auditory hallucinations Though content/process: There is no evidence of any delusional thought content and thought process is linear and goal-directed. Memory and concentration: AOX3, grossly intact for the purposes of this session. Can spell "WORLD" backwards Judgment and insight: Poor Vital Signs Temp 98.5 F 05/05/21 11:22 Pulse 101 H 05/05/21 13:09 Resp 20 05/05/21 13:09 BP 132/56 05/05/21 13:09 Pulse Ox 99 05/05/21 13:09 Intake & Output 05/04/21 05/05/21 05/05/21 18:59 06:59 18:59 Output Total 950 800 Balance -950 -800 Weight 79.379 kg Output: Urine 950 800 Laboratory Results - Last 24 Hours 05/04/21 05/05/21 05/05/21 13:49 09:18 09:18 WBC 5.1 RBC 3.62 L Hgb 13.6 Hct 39.0 MCV 108.0 H MCH 37.7 H MCHC 35.0 RDW 13.5 Plt Count 38 L MPV 13.1 Neutrophils % 65 Lymphocytes % 23 Monocytes % 8 Eosinophils % 2 Basophils % 1 Neutrophils # 3.3 Lymphocytes # 1.2 Monocytes # 0.4 Eosinophils # 0.1 Basophils # 0.0 Manual Slide Review Performed Large Platelets Present Macrocytosis Moderate Sodium 134 L Potassium 3.2 L Chloride 100 Carbon Dioxide 29 Anion Gap 5 BUN 5 L Creatinine 0.47 L Est GFR (CKD-EPI)AfAm >90 Est GFR (CKD-EPI)NonAf >90 Glucose 99 Calcium 8.1 L Total Bilirubin 2.8 H AST 300 H ALT 72 H Alkaline Phosphatase 373 H Total Protein 5.5 L Albumin 2.8 L Globulin 2.7 Albumin/Globulin Ratio 1.0 Urine Opiates Screen Not Detected Ur Oxycodone Screen Not Detected Urine Methadone Screen Not Detected Ur Propoxyphene Screen Not Detected Ur Barbiturates Screen Not Detected U Tricyclic Antidepress Detected H Ur Phencyclidine Scrn Not Detected Ur Amphetamines Screen Not Detected U Methamphetamines Scrn Not Detected U Benzodiazepines Scrn Not Detected Urine Cocaine Screen Not Detected U Marijuana (THC) Screen Detected H IMPRESSIONS: Major depressive disorder, recurrent, severe, with anxious features Alcohol use disorder Cannabis use disorder Nicotine dependence PLAN: -At this time patient DOES meet criteria for inpatient psychiatric admission. The patient is endorsing significant symptoms of depression that is impeding his ability to attend to his ADLs. Furthermore, the patient is dealing with chronic suicidal ideation. -Delirium precautions recommended with patient including - avoiding use of narcotics and FRAME STYLIST sedatives, limit anticholinergic medications when possible, frequent re-orientation, minimize use of restraints, open window shades during the day and close them at night -Would recommend the following medication changes/additions: We'll restart some of the patient's medications including Remeron at 15 mg by mouth at bedtime for depression/insomnia/appetite stimulation and Seroquel 300 mg by mouth at bedtime for mood augmentation/stabilization/insomnia. We will hold Trintellix at this time due to concern for syncopal vs seizure episode. -CIWA protocol recommended with Ativan PRN. -Continue 1:1 sitter for safety -Cannot leave AMA at this time. Patient will need a petition and certification if attempting to leave AMA. -When medically stable, patient is eligible for transfer to a psych bed when available. -Psychiatry will sign off at this point, please contact with any questions. 05/05/21 14:14
[2021-05-05] MEDS ORDERED: LORazepam 1 MG TAB PO PRN (19:03)
[2021-05-05] MEDS ORDERED: QUEtiapine 100 MG TAB PO SCH (21:00)
[2021-05-05] MEDS ORDERED: MIRTAZAPINE 15 MG TAB PO SCH (21:00)
[2021-05-05] MEDS ORDERED: QUEtiapine 100 MG TAB PO ONE (21:45)
[2021-05-05] MEDS: NICOTINE 21MG/24HR PATCH TRANSDERM SCH (23:37)
[2021-05-06] MEDS: LORazepam 2 MG/ML INJ IV PRN ×4 (02:19→14:01)
[2021-05-06] MEDS: NICOTINE 21MG/24HR PATCH TRANSDERM SCH (08:54)
[2021-05-06 10:50] LABS: ALT 60 U/L (4-49); AST 187 U/L (17-59); African American GFR (CKD) >90 (>60 ml/min/1.73 sqM); Albumin 2.8 g/dL (3.5-5.0); Alkaline Phosphatase 409 U/L (38-126); Anion Gap 7 mmol/L; Blood Urea Nitrogen 6 mg/dL (9-20); Calcium 8.2 mg/dL (8.4-10.2); Carbon Dioxide 28 mmol/L (22-30); Chloride 102 mmol/L (98-107); Globulin 2.7 g/dL; Glucose 137 mg/dL (74-99); Non-African American GFR(CKD) >90 (>60 ml/min/1.73 sqM); Potassium 3.1 mmol/L (3.5-5.1); Sodium 137 mmol/L (137-145); Total Protein 5.5 g/dL (6.3-8.2)
[2021-05-06 13:32] VITALS: BP 144/94; PULSE 116; RESP 14; TEMP 98.2
--- NOTE | 2021-05-06 13:46 | P.CON ---
Consult Note - . Consult date: 05/06/21 Assessment/Plan:: Clinical Problems: Alcohol withdrawal, alcohol use disorder severe, rule out alcohol withdrawal seizure, alcohol induced mood disorder, cannabis use disorder, tobacco use disorder, Opiate use disorder severe sustained remission Interim history: I reviewed the medical record and interviewed the patient. He is a 30-year-old single male who has a history of an alcohol use disorder. His manager contracting brought him to the emergency department on 05/04/2021 with concerns about his well-being. According to the initial psychiatric storage management consultant he presented to the ED for worsening depression and suicidal ideation. However, during our interview the patient denied that he is experiencing suicidal ideation or worsening depression. He also specifically denied that he was currently having thoughts of or suicide. He was concerned about his alcohol use and believes that he experiences alcohol withdrawal seizure resulting in contusions and lacerations to his face. Note that his serum alcohol level was less than 10 on admission to the medical unit (supporting his history that he had stopped his all call use prior to his presentation). Overall, his other laboratory studies were consistent with chronic alcohol use including elevated bilirubin, AST, ALT, alkaline phosphatase lipase. He described chronic thoughts of that he attributed to the of his fiance from a heroin overdose several years ago. We verified through [employer] that he is actively engaged with services through community mental health. [employer] [facility] reported that his machine adjuster leader case trim brought him to the hospital because she was concerned about his uncontrolled alcohol use. He denied use of other drugs with the exception of marijuana and his UDS only positive for marijuana and tricyclic antidepressants (he is taking Seroquel at nighttime). He denied auditory, visual or olfactory hallucinations, ideas reference, thought insertion, thought casting or thought control. He denied history of suicide attempts or gestures. We discussed his alcohol use and alcohol use problems. He expressed interest in engaging in substance abuse services and would consider participation in another residential substance abuse treatment program (he has participated approximately 8 residential substance abuse treatment programs). He blamed that be have been in contact with [facility] who will follow him once he leaves the hospital Mental status exam: He presented as a somewhat disheveled appearing 30-year-old male with contusions and abrasions on his face. He made eye contact and appeared to attend to interview. He had a blunted facial expression. He has psychomotor retardation but no abnormal involuntary movements. Her speech was spontaneous with normal rate and rhythm. He was not dysarthric. His affect was anxious. He denied suicidal ideation, wishes homicidal ideation. He denied feeling hopeless, helpless or worthless. He ruminated about his living situation. Apparently he has been served an eviction notice and must be out of his apartment by the end of this month. He did not express ideas reference, paranoid ideation or delusions. His thinking was concrete but his associations were coherent and goal directed. He denied hallucinations did not appear to be responding to internal stimuli. Assessment: He has a chronic mental illness, chronic substance abuse problem. He is actively engaged in outpatient mental health and substance abuse services. I suspect that she incurred an alcohol withdrawal seizure prior to admission. He is denying depression or thoughts of harm to himself or others. There is no evidence of major mood or thought disturbances at this time. He does not currently meet judicial criteria for involuntary hospitalization and consented to a voluntary transfer to the psychiatric unit. Plan: Completed a negative clinical certificate. [facility] will contact him tomorrow. He has felt appointments with his therapist.
[2021-05-06] MEDS ORDERED: Potassium Replacement Protocol 1 EACH MISC MISCELLANE PRN (14:04)
[2021-05-06] MEDS: POTASSIUM CHLORIDE ER 20 MEQ TAB.ER PO SCH ×2 (14:14→15:04)
--- NOTE | 2021-05-06 19:31 | HP ---
HISTORY AND PHYSICAL DATE OF ADMISSION: 05/04/2021 CHIEF COMPLAINT: Acute alcohol intoxication with coma with a longstanding history of chronic alcoholism. He may also have had a seizure. HISTORY OF PRESENT ILLNESS: This is another admission this 30-year-old chronic alcoholic. He has been in and out of the emergency room frequently. He came back in acutely intoxicated with a history of possible seizure. He had some facial abrasions on the nose and right cheek. REVIEW OF SYSTEMS: Review of systems is unobtainable. He is not arousable. Past medical history, family history, and personal and social histories are not obtainable because he is not arousable. He has been in the office and HE DOES NOT HAVE ANY ALLERGIES. The only medication that he has been on is pantoprazole. He has had some problems with depression in the past. Surgically he has had an appendectomy and a cholecystectomy as well as hemorrhoidectomy and several hernia procedures. He does smoke. PHYSICAL EXAMINATION: Blood pressure is 130/80 with a pulse of 110, respirations of 12, and he is afebrile. In general he appeared to be well developed, well nourished, in no acute distress. Skin color is normal. Skin is warm and dry. Lymph nodes are not enlarged. Head, ears, eyes, nose and mouth were normal and neck veins did not appear to be distended. Chest was clear. Cardiac exam demonstrated sinus tachycardia. His abdomen was soft and nontender. Extremities seemed to be normal. Neurologically he is very lethargic. The only abnormal findings were abrasions on the nose and right cheek. He is admitted to the hospital with the diagnoses: 1. Acute alcohol intoxication. 2. Chronic alcoholism. 3. Possible alcohol-related seizure. PLAN: 1. Bedrest. 2. IV fluids. 3. Bedside sitter. MMODL / IJN: [id number] /
--- NOTE | 2021-05-06 19:36 | PN ---
PROGRESS NOTE DATE OF SERVICE: 05/05/2021 CHIEF COMPLAINT: Acute alcohol intoxication with seizure. HISTORY OF PRESENT ILLNESS: This gentleman is doing well. He is waking up and he is doing better. For some reason, he has been seen by Psychiatry, who has committed him. Patient states that he is not homicidal, suicidal, and he is not psychotic. PHYSICAL EXAMINATION: Chest is clear. Cardiac exam is normal. The abdomen is soft, nontender. IMPRESSION: 1. Acute alcohol intoxication. 2. Chronic alcoholism. 3. Facial abrasions. 4. Depression. PLAN: Increase activity and probably hold for another 24-48 hours on seizure precautions. MMODL / IJN: [id number] /
--- NOTE | 2021-05-06 19:41 | DS ---
DISCHARGE SUMMARY CHIEF COMPLAINT: Acute alcohol intoxication and coma with history of possible seizure. HISTORY OF PRESENT ILLNESS AND PHYSICAL EXAMINATION: Details of this man's history and physical can be found in the initial workup. LABORATORY STUDIES: While he was in the hospital he had laboratory studies, details of which can be found in the laboratory section of his chart. COURSE IN THE HOSPITAL: After admission he was placed on bedrest and started on intravenous fluids until he became more awake and alert. He was seen by Psychiatry. He has had a history of depression. For reasons which were not clear to me, the patient was committed. He became more awake and alert and was doing well on 05/06/2021. In my opinion, he did not seem to be psychotic or suicidal or homicidal. Psychiatry left a note that the patient voluntarily agreed to go to [facility]. Later I received notification from the psychiatrist that said that he could go home. Before he could be discharged, he signed out AMA. FINAL DIAGNOSIS: 1. Acute alcohol intoxication with coma. 2. Possible alcohol-related seizure. 3. Chronic alcoholism. 4. Depression. 5. Facial abrasions. 6. Hypokalemia. OPERATIONS: None. CONSULTATION: Psychiatry. He is improved. MMODL / IJN: [id number] /
== END 2021-05-06 16:24 | disposition left against medical advice (07) | DRG 894 ==
LOC: EC 10:25 → 5NMEDONC 13:18
PROVIDERS: ADMIT Family Medicine; ATTEND Family Medicine
DX: F10.229 Alcohol dependence with intoxication, unspecified (principal); R40.20 Unspecified coma; F33.2 Major depressive disorder, recurrent severe without psychotic features; R45.851 Suicidal ideations; E87.6 Hypokalemia; F17.200 Nicotine dependence, unspecified, uncomplicated; G40.909 Epilepsy, unspecified, not intractable, without status epilepticus; K21.9 Gastro-esophageal reflux disease without esophagitis; R74.01 Elevation of levels of liver transaminase levels; Z79.899 Other long term (current) drug therapy; S00.31XA Abrasion of nose, initial encounter; S00.81XA Abrasion of other part of head, initial encounter; S00.83XA Contusion of other part of head, initial encounter; S01.511A Laceration without foreign body of lip, initial encounter; Z79.82 Long term (current) use of aspirin; K70.10 Alcoholic hepatitis without ascites; F42.9 Obsessive-compulsive disorder, unspecified
CPT/HCPCS: 36415; 70450; 70486; 80053; 80306; 80320; 81003; 82075; 83690; 83735; 85025; 90715; 93005; 96365; 96366; 96375; 99291

== ENCOUNTER 2021-05-17 09:32 | Inpatient (IN) | payer OTHER ==
[2021-05-17] MEDS ORDERED: SODIUM CHLORIDE 0.9% 1,000 ML with MVI, ADULT NO.4 WITH VIT K 10 ML, THIAMINE 100 MG, F... IV ONE ×4 (09:38)
[2021-05-17] MEDS ORDERED: SODIUM CHLORIDE 0.9% 500 ML 500 ML IV ONE (09:38)
[2021-05-17] MEDS ORDERED: SODIUM CHLORIDE 0.9% 1,000 ML IV ONE ×2 (09:38→11:35)
--- NOTE | 2021-05-17 10:16 | ED ---
General Adult HPI - General Chief complaint: Alcohol Stated complaint: ETOH Time Seen by Provider: 05/17/21 09:35 Source: patient, EMS, RN notes reviewed, old records reviewed Mode of arrival: EMS - History of Present Illness Initial comments: This is a 30-year-old male who presents emergency department highly intoxicated. Counselor called EMS and EMS arrived patient had no complaints other than being extremely intoxicated. Patient was post to follow-up with rehabilitation Center today but obviously in his current state he was unable to do so. Patient denies any recent injury or trauma. Patient denies any chest pain difficulty breathing shortest breath per patient denies any recent fever chills per patient denies any vomiting nausea or diarrhea. Patient denies any abdominal pain. - Related Data Home Medications Medication Instructions Recorded Confirmed QUEtiapine FUMARATE [SEROquel] 600 mg PO HS 02/15/21 05/17/21 Vortioxetine Hydrobromide 20 mg PO HS 02/15/21 05/17/21 [Trintellix] Aspirin/Acetaminophen/Caffeine 1 tab PO DAILY PRN 05/04/21 05/17/21 [Excedrin Migraine Caplet] Mirtazapine [Remeron] 15 mg PO HS 05/04/21 05/17/21 Previous Rx's Medication Instructions Recorded Pantoprazole Sodium [Protonix] 40 mg PO DAILY 24 Days #24 11/26/20 tablet. Allergies Allergy/AdvReac Type Severity Reaction Status Date / Time No Known Allergies Allergy Verified 05/04/21 12:03 Review of Systems ROS Statement: Those systems with pertinent positive or pertinent negative responses have been documented in the HPI. ROS Other: All systems not noted in ROS Statement are negative. Past Medical History Past Medical History: GERD/Reflux, Seizure Disorder Additional Past Medical History / Comment(s): migraines, OCD History of Any Multi-Drug Resistant Organisms: None Reported Past Surgical History: Appendectomy, Cholecystectomy, Hernia Repair, Tonsillectomy Additional Past Surgical History / Comment(s): 7 hernias Past Anesthesia/Blood Transfusion Reactions: No Reported Reaction Past Psychological History: ADD/ADHD, Anxiety, Bipolar Smoking Status: Current every day smoker Past Alcohol Use History: Abuse, Daily, Heavy Past Drug Use History: Marijuana General Exam - General Exam Comments Initial Comments: GENERAL: Patient is well-developed and well-nourished. Patient is nontoxic and well- hydrated and is in no acute distress. Patient is highly intoxicated ENT: Neck is soft and supple. No significant lymphadenopathy is noted. Oropharynx is clear. Moist mucous membranes. Neck has full range of motion without eliciting any pain. EYES: The sclera were anicteric and conjunctiva were pink and moist. Extraocular movements were intact and pupils were equal round and reactive to light. Eyelids were unremarkable. PULMONARY: Unlabored respirations. Good breath sounds bilaterally. No audible rales rhonchi or wheezing was noted. CARDIOVASCULAR: There is a regular rate and rhythm without any murmurs gallops or rubs. ABDOMEN: Soft and nontender with normal bowel sounds. SKIN: Skin is clear with no lesions or rashes and otherwise unremarkable. NEUROLOGIC: Patient is alert and oriented x3. Cranial nerves II through XII are grossly intact. Motor and sensory are also intact. Normal speech, volume and content. Symmetrical smile. MUSCULOSKELETAL: Normal extremities with adequate strength and full range of motion. LYMPHATICS: No significant lymphadenopathy is noted PSYCHIATRIC: Normal psychiatric evaluation. Patient denies any suicidal ideations or attempts Course Vital Signs 05/17/21 09:34 Temperature 98.4 F Pulse Rate 98 Respiratory 18 Rate Blood Pressure 119/84 O2 Sat by Pulse 94 L Oximetry Medical Decision Making - Medical Decision Making I spoke with Dr. Urias he agreed to admit the patient admitted the patient wrote admitting orders. Patient was hypomagnesemic and there are placed some magnesium 2 g of magnesium sulfate I wrote orders and admitted the patient - Lab Data Result diagrams: 05/17/21 10:00 05/17/21 10:00 Lab Results 05/17/21 05/17/21 Range/Units 10:00 10:00 WBC 9.2 (3.8-10.6) k/uL RBC 4.49 (4.30-5.90) m/uL Hgb 16.6 D (13.0-17.5) gm/dL Hct 47.7 (39.0-53.0) % MCV 106.3 H (80.0-100.0) fL MCH 37.0 H (25.0-35.0) pg MCHC 34.8 (31.0-37.0) g/dL RDW 13.8 (11.5-15.5) % Plt Count 187 D (150-450) k/uL MPV 7.5 Neutrophils % 81 % Lymphocytes % 10 % Monocytes % 4 % Eosinophils % 1 % Basophils % 2 % Neutrophils # 7.5 (1.3-7.7) k/uL Lymphocytes # 0.9 L (1.0-4.8) k/uL Monocytes # 0.4 (0-1.0) k/uL Eosinophils # 0.1 (0-0.7) k/uL Basophils # 0.2 (0-0.2) k/uL Macrocytosis Moderate Sodium 142 (137-145) mmol/L Potassium 3.7 (3.5-5.1) mmol/L Chloride 105 (98-107) mmol/L Carbon Dioxide 24 (22-30) mmol/L Anion Gap 13 mmol/L BUN 4 L (9-20) mg/dL Creatinine 0.56 L (0.66-1.25) mg/dL Est GFR (CKD-EPI)AfAm >90 (>60 ml/min/1.73 sqM) Est GFR (CKD-EPI)NonAf >90 (>60 ml/min/1.73 sqM) Glucose 104 H (74-99) mg/dL Calcium 7.6 L (8.4-10.2) mg/dL Magnesium 1.6 (1.6-2.3) mg/dL Total Bilirubin 1.4 H (0.2-1.3) mg/dL AST 409 H (17-59) U/L ALT 112 H (4-49) U/L Alkaline Phosphatase 404 H (38-126) U/L Total Protein 5.9 L (6.3-8.2) g/dL Albumin 3.2 L (3.5-5.0) g/dL Serum Alcohol 524 H* mg/dL Disposition Clinical Impression: Alcoholic intoxication, Hypomagnesemia Disposition: ADMITTED IP TO THIS HOSP Referrals: Bigg Paula MD [Primary Care Provider] - 1-2 days Time of Disposition: 11:35
[2021-05-17 10:22] LABS: Basophils # (A) 0.2 k/uL (0-0.2); Basophils % (A) 2 %; Eosinophils # (A) 0.1 k/uL (0-0.7); Eosinophils % (A) 1 %; HCT 47.7 % (39.0-53.0); Lymphocytes # (A) 0.9 k/uL (1.0-4.8); Lymphocytes % (A) 10 %; MCHC 34.8 g/dL (31.0-37.0); MCV 106.3 fL (80.0-100.0); Macrocytosis Moderate; Mean Platelet Volume 7.5; Monocytes # (A) 0.4 k/uL (0-1.0); Monocytes % (A) 4 %; Neutrophils # (A) 7.5 k/uL (1.3-7.7); Neutrophils % (A) 81 %; RBC 4.49 m/uL (4.30-5.90); RDW 13.8 % (11.5-15.5); WBC 9.2 k/uL (3.8-10.6)
[2021-05-17 10:23] LABS: HGB 16.6 gm/dL (13.0-17.5); Platelet Count 187 k/uL (150-450)
[2021-05-17 10:52] LABS: ALT 112 U/L (4-49); AST 409 U/L (17-59); African American GFR (CKD) >90 (>60 ml/min/1.73 sqM); Albumin 3.2 g/dL (3.5-5.0); Alkaline Phosphatase 404 U/L (38-126); Anion Gap 13 mmol/L; Blood Urea Nitrogen 4 mg/dL (9-20); Calcium 7.6 mg/dL (8.4-10.2); Carbon Dioxide 24 mmol/L (22-30); Chloride 105 mmol/L (98-107); Glucose 104 mg/dL (74-99); Magnesium 1.6 mg/dL (1.6-2.3); Non-African American GFR(CKD) >90 (>60 ml/min/1.73 sqM); Potassium 3.7 mmol/L (3.5-5.1); Sodium 142 mmol/L (137-145); Total Bilirubin 1.4 mg/dL (0.2-1.3); Total Protein 5.9 g/dL (6.3-8.2)
[2021-05-17 11:11] LABS: Alcohol 524 mg/dL
[2021-05-17] MEDS ORDERED: THIAMINE 100 MG/ML 2 ML VIAL IM STA (11:36)
[2021-05-17] MEDS ORDERED: LORazepam 2 MG/ML INJ IV PRN (11:36)
[2021-05-17] MEDS: LORazepam 2 MG/ML INJ IV PRN ×5 (12:08→23:32)
[2021-05-17] MEDS: MAGNESIUM SULFATE-D5W PMX 1 GM in DEXTROSE/WATER 1 100ML.BAG IVPB SCH ×2 (13:57→15:20)
[2021-05-17] MEDS: THIAMINE 100 MG TAB PO SCH (17:38)
[2021-05-17 17:54] LABS: ALT 101 U/L (4-49); AST 344 U/L (17-59); African American GFR (CKD) >90 (>60 ml/min/1.73 sqM); Albumin 2.8 g/dL (3.5-5.0); Alkaline Phosphatase 361 U/L (38-126); Anion Gap 8 mmol/L; Blood Urea Nitrogen 3 mg/dL (9-20); Calcium 6.5 mg/dL (8.4-10.2); Carbon Dioxide 23 mmol/L (22-30); Chloride 105 mmol/L (98-107); Glucose 127 mg/dL (74-99); Non-African American GFR(CKD) >90 (>60 ml/min/1.73 sqM); Potassium 3.4 mmol/L (3.5-5.1); Sodium 136 mmol/L (137-145); Total Bilirubin 1.5 mg/dL (0.2-1.3); Total Protein 5.4 g/dL (6.3-8.2)
--- NOTE | 2021-05-17 18:47 | HP ---
HISTORY AND PHYSICAL I am covering for Dr. Paula. DATE OF SERVICE: 05/17/2021 HISTORY OF PRESENT ILLNESS: This 30-year-old gentleman with a past medical history of GERD, seizure disorder, migraine, OCD, history of cholecystectomy, ADHD, anxiety, bipolar, being followed by Dr. Paula in the outpatient setting, apparently was drinking 2-3 pints of alcohol a day. The patient presented to emergency room highly intoxicated. The counselor called EMS and EMS brought the patient to [facility]. The patient is extremely intoxicated, though confused and conscious. The patient was admitted for evaluation and treatment. The alcohol level was found to be 524. A detailed history cannot be taken from the patient because he is drowsy on and off. Multiple lab abnormalities were noted. PAST MEDICAL HISTORY: History of GERD, history seizure disorder, migraine, OCD, appendectomy, cholecystomy, ADD, ADHD, anxiety, bipolar. MEDICATIONS: Home medications prior to admission include Trintellix, Seroquel, Protonix, Remeron, Excedrin. ALLERGIES: NONE. Family history, social history, review of systems could not be taken; the patient is rather drowsy. Hypertension and myocardial infarction in family history per chart. PHYSICAL EXAMINATION: Pulse is 111, blood pressure 125/82, respiration 18, temperature 98 degrees, pulse ox 94% on room air. HEENT: Conjunctivae normal. NECK: No jugular venous distention. CARDIOVASCULAR: S1, S2 muffled. RESPIRATION: Breath sounds diminished at the bases. A few scattered rhonchi and crackles. ABDOMEN: Soft, nontender. No mass palpable. LEGS: No edema. No swelling. NERVOUS SYSTEM: Full exam cannot be done. SKIN: No ulcer, rash, bleeding. JOINTS: No active deforming arthropathy. LYMPHATICS: No lymph node palpable in neck, axillae or groin. LABS: WBC 9.3, hemoglobin 16.6 and MCV 106. Sodium 142, potassium 3.7, and calcium is 7.6. Total bilirubin is 1.4, AST is 409, ALT is 112, alkaline phosphatase is 404 and serum alcohol 525. ASSESSMENT: 1. Acute alcohol intoxication. 2. Change in mental status, acute metabolic and toxic encephalopathy secondary to alcohol. 3. Acute alcoholic hepatitis. 4. Gastroesophageal reflux disease. 5. History of seizure disorder. 6. Migraine and OCD. 7. History of cholecystectomy. 8. Attention deficit disorder, attention deficit hyperactivity disorder, anxiety, bipolar. 9. Borderline personality disorder. 10.History of nicotine dependence. 11.History of THC. RECOMMENDATIONS AND DISCUSSION: In this is a 30-year-old gentleman who presented with multiple complex medical issues, we will monitor the patient closely, continue the current medications, continue symptomatic treatment. We will initiate CIWA protocol. Watch for any withdrawal symptoms. Resume the home medications. Guarded prognosis because of multiple complex medical issues. Patient will need alcohol rehab. political worker and Case Management to follow. A copy of this dictation is being forwarded to Dr. Paula, who is the primary physician. MMJATINDERL / HARRIETN: [id number] /
[2021-05-17] MEDS: MIRTAZAPINE 15 MG TAB PO SCH (20:54)
[2021-05-17] MEDS: QUEtiapine 200 MG TAB PO SCH (20:54)
[2021-05-17] MEDS: HEPARIN SODIUM,PORCINE/PF 5,000 UNIT/0.5 ML SYRINGE SQ SCH (20:54)
[2021-05-17] MEDS: VORTIOXETINE HYDROBROMIDE 20 MG TABLET PO SCH (20:54)
[2021-05-18] MEDS ORDERED: ONDANSETRON 4 MG/2 ML VIAL IVP PRN (00:52)
[2021-05-18] MEDS ORDERED: QUEtiapine 200 MG TAB PO STA (00:56)
[2021-05-18] MEDS: ACETAMINOPHEN TAB 500 MG TAB PO PRN ×2 (01:30→08:26)
[2021-05-18] MEDS: LORazepam 2 MG/ML INJ IV PRN ×11 (02:44→23:28)
[2021-05-18] MEDS: THIAMINE 100 MG TAB PO SCH ×2 (06:30→14:57)
[2021-05-18] MEDS: PANTOPRAZOLE 40 MG TABLET PO SCH (06:30)
[2021-05-18 08:18] LABS: Basophils % (A) 0 %; Eosinophils % (A) 0 %; HCT 37.2 % (39.0-53.0); Lymphocytes # (A) 0.6 k/uL (1.0-4.8); Lymphocytes % (A) 8 %; MCH 38.3 pg (25.0-35.0); MCHC 36.1 g/dL (31.0-37.0); MCV 106.2 fL (80.0-100.0); Macrocytosis Moderate; Mean Platelet Volume 8.4; Monocytes # (A) 0.2 k/uL (0-1.0); Monocytes % (A) 3 %; Neutrophils # (A) 6.6 k/uL (1.3-7.7); Neutrophils % (A) 88 %; RDW 13.5 % (11.5-15.5); WBC 7.6 k/uL (3.8-10.6)
[2021-05-18 08:23] LABS: HGB 13.4 gm/dL (13.0-17.5)
[2021-05-18] MEDS: HEPARIN SODIUM,PORCINE/PF 5,000 UNIT/0.5 ML SYRINGE SQ SCH ×2 (08:28→20:37)
[2021-05-18] MEDS ORDERED: diazePAM 5 MG TAB PO PRN (11:11)
[2021-05-18 11:43] LABS: Platelet Count 84 k/uL (150-450)
[2021-05-18] MEDS: MULTIVITAMINS, THERA 1 EACH TAB PO SCH (14:57)
[2021-05-18] MEDS: FOLIC ACID 1 MG TAB PO SCH (14:57)
[2021-05-18] MEDS: ASPIRIN-ACET-CAFF 250-250-65MG 1 EACH TAB PO PRN (14:58)
[2021-05-18] MEDS ORDERED: Magnesium Replacement Protocol 1 EACH MISC MISCELLANE PRN (19:55)
[2021-05-18] MEDS ORDERED: Potassium Replacement Protocol 1 EACH MISC MISCELLANE PRN (19:55)
[2021-05-18] MEDS: VORTIOXETINE HYDROBROMIDE 20 MG TABLET PO SCH (20:37)
[2021-05-18] MEDS: METOPROLOL TARTRATE 12.5 MG TAB PO SCH (20:37)
[2021-05-18] MEDS: MIRTAZAPINE 15 MG TAB PO SCH (20:37)
--- NOTE | 2021-05-18 20:52 | XR ---
EXAMINATION: XR chest 1V portable DATE AND TIME: 05/18/2021 8:25 PM CLINICAL INDICATION: PHH; chf TECHNIQUE: AP portable upright COMPARISON: None FINDINGS: There is prominent elevation of the right hemidiaphragm, etiology unclear. This does not allow visual ization of the lower one half of the right lung parenchyma. There is a horizontal linear band of added opacity, over this elevated hemidiaphragm, consistent with discoid subsegmental atelectasis. On the contralateral left, there are 2 horizontally oriented small linear bands of added opacity consistent with discoid subsegmental atelectasis. Otherwise, the lungs are clear and well expanded. The pleural spaces are negative as seen. The cardiac silhouette is not enlarged. The remainder of the mediastinal silhouette is unremarkable. The skeletal structures and soft tissues are negative for acute findings. IMPRESSION: Limited study, as above.
--- NOTE | 2021-05-18 21:14 | PN ---
PROGRESS NOTE I am covering for Dr. Paula. DATE OF SERVICE: 05/18/2021 This 30-year-old gentleman, admitted with alcoholic intoxication, is being closely monitored. Patient continues to be slightly drowsy at this time. PHYSICAL EXAMINATION: Arousable. Pulse is 116, blood pressure 133/81, respirations 16, temperature 99.2, pulse ox 94% on room air. HEENT: Conjunctivae normal. NECK: No jugular venous distention. CARDIOVASCULAR: S1, S2 muffled. RESPIRATION: Breath sounds diminished at the bases. Scattered rhonchi. ABDOMEN: Soft. NERVOUS SYSTEM: No focal deficit. LABS: Sodium 136, potassium 3.4. Other labs are noted. ASSESSMENT: 1. Acute alcohol intoxication. 2. Change in mental status, acute metabolic encephalopathy secondary to alcohol. 3. Tachycardia. 4. Acute alcohol hepatitis. 5. Gastroesophageal reflux disease. 6. History of seizure disorder. 7. Hypocalcemia. 8. Migraine and OCD. 9. History of cholecystectomy. 10.Attention deficit disorder, attention deficit hyperactivity disorder, anxiety, bipolar. 11.Borderline personality disorder. 12.History of nicotine dependence. 13.History of THC. 14.Hyponatremia. 15.Hypokalemia. RECOMMENDATIONS AND DISCUSSION: I recommend to continue current medications, continue with symptomatic treatment. Recommend to continue current management. Will continue to monitor. Repeat labs in the morning. Guarded prognosis because of multiple complex medical issues. Further recommendations to follow. MMODL / HARRIETN: [id number] /
[2021-05-18] MEDS: QUEtiapine 200 MG TAB PO SCH (21:38)
[2021-05-19] MEDS: LORazepam 2 MG/ML INJ IV PRN ×13 (01:36→23:22)
[2021-05-19] MEDS: ASPIRIN-ACET-CAFF 250-250-65MG 1 EACH TAB PO PRN (04:00)
[2021-05-19] MEDS: NICOTINE 21MG/24HR PATCH TRANSDERM SCH ×2 (04:00→09:46)
[2021-05-19] MEDS: THIAMINE 100 MG TAB PO SCH ×2 (06:41→17:02)
[2021-05-19] MEDS: PANTOPRAZOLE 40 MG TABLET PO SCH (06:41)
[2021-05-19 08:14] LABS: Basophils % (A) 1 %; Eosinophils % (A) 1 %; HCT 40.4 % (39.0-53.0); HGB 13.8 gm/dL (13.0-17.5); Lymphocytes # (A) 0.8 k/uL (1.0-4.8); Lymphocytes % (A) 14 %; MCH 37.1 pg (25.0-35.0); MCHC 34.3 g/dL (31.0-37.0); MCV 108.2 fL (80.0-100.0); Macrocytosis Moderate; Mean Platelet Volume 10.2; Monocytes # (A) 0.2 k/uL (0-1.0); Monocytes % (A) 3 %; Neutrophils # (A) 4.7 k/uL (1.3-7.7); Neutrophils % (A) 80 %; RBC 3.73 m/uL (4.30-5.90); RDW 13.7 % (11.5-15.5); WBC 5.9 k/uL (3.8-10.6)
[2021-05-19 08:16] LABS: ALT 76 U/L (4-49); AST 209 U/L (17-59); African American GFR (CKD) >90 (>60 ml/min/1.73 sqM); Alkaline Phosphatase 365 U/L (38-126); Anion Gap 6 mmol/L; Blood Urea Nitrogen <2 mg/dL (9-20); Calcium 8.3 mg/dL (8.4-10.2); Carbon Dioxide 23 mmol/L (22-30); Chloride 108 mmol/L (98-107); Glucose 102 mg/dL (74-99); Magnesium 1.6 mg/dL (1.6-2.3); Non-African American GFR(CKD) >90 (>60 ml/min/1.73 sqM); Potassium 3.5 mmol/L (3.5-5.1); Sodium 137 mmol/L (137-145); Total Bilirubin 2.1 mg/dL (0.2-1.3); Total Protein 5.8 g/dL (6.3-8.2)
[2021-05-19 08:17] LABS: Platelet Count 61 k/uL (150-450)
[2021-05-19] MEDS: HEPARIN SODIUM,PORCINE/PF 5,000 UNIT/0.5 ML SYRINGE SQ SCH ×2 (09:46→19:56)
[2021-05-19] MEDS: METOPROLOL TARTRATE 12.5 MG TAB PO SCH ×3 (09:47→19:56)
[2021-05-19] MEDS: MAGNESIUM SULFATE-D5W PMX 1 GM in DEXTROSE/WATER 1 100ML.BAG IVPB SCH ×2 (09:47→12:22)
[2021-05-19] MEDS: POTASSIUM CHLORIDE ER 20 MEQ TAB.ER PO SCH ×2 (09:47→10:05)
[2021-05-19] MEDS: MULTIVITAMINS, THERA 1 EACH TAB PO SCH (11:05)
[2021-05-19] MEDS: FOLIC ACID 1 MG TAB PO SCH (11:05)
[2021-05-19] MEDS ORDERED: cloNIDine HCL 0.1 MG TAB PO PRN (14:20)
--- NOTE | 2021-05-19 14:39 | P.CN ---
Psychiatric Consult - . Consult date: 05/19/21 Consult:: 05/19/21 14:38 IDENTIFYING DATA: This patient is a single, on Social Security disability, 30-year-old male who presents emergency department for acute alcohol intoxication. HISTORY OF PRESENT ILLNESS: The patient presented to the hospital on 05/17/21, brought in to the emergency department for alcohol intoxication. The patient was brought in by EMS. The patient was reportedly supposed to go to rehabilitation for his alcohol use disorder but due to severe alcohol intoxication, was unable to do so. The patient was petitioned due to concerns for suicidal ideation as the patient expressed suicidal thoughts while intox icated. Upon evaluation the emergency department, the patient's alcohol level was 524 (H). Currently, the patient's CIWA score is at 13 and he displays autonomic changes including hypertension with a BP of 145/104 and a HR of 117. Psychiatry has been consulted for his alcohol use disorder, suicidal ideation, and the patient has been petition. Upon evaluation by this provider, the patient is not endorsing any suicidal or homicidal ideation, intention, and/or plan. The patient reported that he last attempted suicide 15 years ago by overdose. The patient is future oriented and is requesting that he go to rehabilitation for his alcohol use disorder. The patient does endorse that he has been feeling significant symptoms of depression for many years prior to this admission to this hospital. He states that he has low motivation, difficulty with sleep, hopelessness, helplessness, and elevated anxiety. This occurs in the context of heavy alcohol use. The patient reports that for the last 7 months, he has been drinking 2-3 pints of liquor per day. The patient states that he really wants to go to rehabilitation to quit his alcohol use and to "break the cycle." The patient states that he has been following with [facility] in the outpatient setting but has not been taking his medications as prescribed. He does not endorse any significant symptoms of psychosis. He reports no auditory or visual hallucinations. He denies any significant history of bipolar disorder. He reports no increased goal-directed activity, excessive energy, grandiosity, or pressured speech. The patient does endorse significant history of trauma. He reports that his fianc in 2019 while on the phone with him by overdosing on heroin. He expresses that he continues to grieve this loss. He endorses flashbacks and nightmares to this event. The patient does have a significant history of heavy substance abuse. Prior to his heavy alcohol use, the patient was using heroin daily. He also reports a significant history of crack cocaine use, and illicit pills. PAST PSYCHIATRIC HISTORY: Patient has a ADD/ADHD, anxiety, bipolar disorder, alcohol use, marijuana use, and nicotine dependence. The patient is currently on a home regimen of trintellix, Seroquel, and Remeron. The patient reports 4 prior inpatient psychiatric hospitalizations, with the last time being in 2018 at [facility] for suicidal ideation. The patient was that he is open with [facility]. He reports one prior attempt at suicide 15 years ago. PAST MEDICAL HISTORY: Past Medical History: GERD/Reflux, Seizure Disorder Additional Past Medical History / Comment(s): migraines, OCD History of Any Multi-Drug Resistant Organisms: None Reported Past Surgical History: Appendectomy, Cholecystectomy, Hernia Repair, Tonsillectomy Additional Past Surgical History / Comment(s): 7 hernias Past Anesthesia/Blood Transfusion Reactions: No Reported Reaction Past Psychological History: ADD/ADHD, Anxiety, Bipolar Smoking Status: Current every day smoker Past Alcohol Use History: Abuse, Daily, Heavy Past Drug Use History: Marijuana ALLERGIES: NO KNOWN DRUG ALLERGIES CHEMICAL DEPENDENCY HISTORY: as per HPI. FAMILY PSYCHIATRIC/SUBSTANCE USE HISTORY: No reported family psychiatric or substance abuse history. SOCIAL HISTORY: Patient states that he is currently single, never , and has no children. He had a fianc who in 2019 after she overdosed on heroin. He currently receives Social Security disability. He reports that his father currently lives in [facility]. He reports that he was recently made homeless and is evicted from his previous home. He expresses a strong desire to go to inpatient rehabilitation. MENTAL STATUS EXAM: General Appearance: Patient appears to be stated age is alert, pleasant, and cooperative. Patient appears to have slightly disheveled hygiene and grooming wearing hospital gown with fair eye contact. Unkempt hair and perez. Behavior: Patient is calmly lying in bed without any agitated behavior. Psychomotor activity is elevated. Patient does display bilateral upper extremity tremors. Speech: Patient's speech is fluent and nonpressured. Spontaneous, with normal rate, tone, and volume. Mood/Affect: Patient reports their mood is "depressed", affect is congruent, constricted, and withdrawn. Suicidality/Homicidality: Patient denies having any suicidal or homicidal ideation intent or plan. Perceptions: Patient denies any visual hallucinations and denies any auditory hallucinations Though content/process: There is no evidence of any delusional thought content and thought process is linear and goal-directed. The patient is future oriented and is wishing to quit substances. Memory and concentration: AOX3, grossly intact for the purposes of this session. Can spell "WORLD" backwards. Judgment and insight: poor Vital Signs Temp 98.2 F 05/19/21 08:00 Pulse 117 H 05/19/21 12:17 Resp 18 05/19/21 12:17 BP 145/104 05/19/21 12:17 Pulse Ox 95 05/19/21 12:17 Intake & Output 05/18/21 05/19/21 05/19/21 18:59 06:59 18:59 Intake Total 236 0 Balance 236 0 Weight 75.5 kg Intake: Oral 236 0 Other: Voiding Method Urinal Toilet Toilet Urinal Urinal # Voids 4 3 2 # Bowel Movements 1 Laboratory Results - Last 24 Hours 05/19/21 05/19/21 07:14 07:14 WBC 5.9 RBC 3.73 L Hgb 13.8 Hct 40.4 MCV 108.2 H MCH 37.1 H MCHC 34.3 RDW 13.7 Plt Count 61 L MPV 10.2 Neutrophils % 80 Lymphocytes % 14 Monocytes % 3 Eosinophils % 1 Basophils % 1 Neutrophils # 4.7 Lymphocytes # 0.8 L Monocytes # 0.2 Eosinophils # 0.0 Basophils # 0.0 Macrocytosis Moderate Sodium 137 Potassium 3.5 Chloride 108 H Carbon Dioxide 23 Anion Gap 6 BUN <2 L Creatinine 0.42 L Est GFR (CKD-EPI)AfAm >90 Est GFR (CKD-EPI)NonAf >90 Glucose 102 H Calcium 8.3 L Magnesium 1.6 Total Bilirubin 2.1 H AST 209 H ALT 76 H Alkaline Phosphatase 365 H Total Protein 5.8 L Albumin 3.0 L IMPRESSIONS: Depressive disorder, secondary to heavy alcohol use Alcohol use disorder Acute alcohol withdrawal Posttraumatic stress disorder Cluster B personality traits Polysubstance abuse PLAN: -At this time patient DOES NOT meet criteria for inpatient psychiatric admission. Currently, the patient is future oriented and is not endorsing any imminent risk of harm to self or others. He is not actively psychotic. He is willing to seek treatment for his heavy alcohol use. -Would recommend the following medication changes/additions: Start Valium 10 mg 4 times a day for alcohol withdrawal Increase Remeron to 30 mg by mouth at bedtime for management of depression/insomnia/appetite Decrease Seroquel to 400 mg by mouth at bedtime as any doses above 400 is less sedating and more activating. We will use Seroquel to augment his antidepressant and to help with mood stabilization and insomnia. Discontinue Trintellix as the patient is not adherent with this medication in the outpatient setting. Also concern for seizures. -Discontinue 1:1 sitter and suicide precautions. Patient may have his phone. -This provider discussed with the patient at length his substance abuse and what to expect while in recovery. Psychoeducation was provided on the role of medications and therapy. We discussed at length how alcohol affects mood, sleep, anxiety, and how sobriety is necessary in order to address his mental health symptoms. -Recommend referral for inpatient substance abuse rehabilitation as per patient request. -Continue CIWA protocol with Ativan when necessary -Psychiatry will sign off at this point, please contact with any questions. 05/19/21 14:38
[2021-05-19 17:02] LABS: ALT 86 U/L (4-49); AST 204 U/L (17-59); African American GFR (CKD) >90 (>60 ml/min/1.73 sqM); Albumin 3.4 g/dL (3.5-5.0); Alkaline Phosphatase 434 U/L (38-126); Anion Gap 8 mmol/L; Blood Urea Nitrogen 2 mg/dL (9-20); Calcium 8.5 mg/dL (8.4-10.2); Carbon Dioxide 22 mmol/L (22-30); Chloride 105 mmol/L (98-107); Glucose 96 mg/dL (74-99); Non-African American GFR(CKD) >90 (>60 ml/min/1.73 sqM); Potassium 3.9 mmol/L (3.5-5.1); Sodium 135 mmol/L (137-145); Total Bilirubin 2.6 mg/dL (0.2-1.3); Total Protein 6.5 g/dL (6.3-8.2)
[2021-05-19] MEDS: diazePAM 5 MG TAB PO SCH ×2 (17:02→21:36)
[2021-05-19] MEDS: cloNIDine HCL 0.1 MG TAB PO SCH ×2 (17:02→21:36)
--- NOTE | 2021-05-19 17:19 | PN ---
PROGRESS NOTE DATE OF SERVICE: 05/19/2021 I am covering for Dr. Paula. This 30-year-old gentleman admitted with significant alcoholism also has significant depression also. The patient is apparently petitioned. The patient mildly confused. The chest x-ray shows limited study. No chest pain. No palpitations. No fever. PHYSICAL EXAMINATION: Alert, oriented times two. Pulse 117. Blood pressure 145/104. Respiration 18. Temp 98.2, pulse ox 94% on room air. HEENT: Conjunctivae normal. Neck: No JVD. Cardiovascular: S1, S2. Respiration: Breath sounds diminished in the bases. Scattered rhonchi. Abdomen: Soft. Nervous system: No focal deficits. LAB STUDIES: WBC 5.3, hemoglobin 13.8. Sodium 130, potassium 3.5. Total bilirubin is 2.1, AST/ALT noted. Alcohol 524. ASSESSMENT: 1. Acute alcohol intoxication. 2. Acute delirium tremens. 3. Change in mental status, acute metabolic encephalopathy, multifactorial. 4. Tachycardia sinus. 5. Hypertension. 6. Acute alcoholic hepatitis. 7. Gastroesophageal reflux disease. 8. History of seizure disorder. 9. Hypocalcemia. 10.Migraine. 11.OCD. 12.History of cholecystectomy. 13.Attention-deficit disorder/attention-deficit/hyperactivity disorder. 14.History of borderline personality disorder. 15.History of nicotine dependence. 16.History of THC. 17.Hyponatremia. 18.Hypokalemia. RECOMMENDATIONS AND DISCUSSION: Continue current medications, management and symptomatic treatment. We will add clonidine to the current regimen. Continue the rest of the medications. CIWA protocol. Otherwise, guarded prognosis because of multiple complex medical issues. Further recommendations to follow. Psychiatric consultation, possible inpatient psych. Patient has been petitioned by the patient's therapist. MMODL / IJN: [id number] /
[2021-05-19 17:26] LABS: Appearance,Urine Clear (Clear); Bilirubin,Urine Negative (Negative); Blood,Urine Negative (Negative); Color,Urine Yellow; Glucose,Urine (UA) Negative (Negative); Ketones,Urine 2+ (Negative); Leukocyte Esterase,Urine Negative (Negative); Nitrite,Urine Negative (Negative); PH, Urine 7.5 (5.0-8.0); Protein,Urine Negative (Negative); Specific Gravity,Urine 1.011 (1.001-1.035)
[2021-05-19] MEDS ORDERED: MIRTAZAPINE 15 MG TAB PO SCH (21:00)
[2021-05-19] MEDS ORDERED: QUEtiapine 400 MG TAB PO SCH (21:00)
[2021-05-20] MEDS: LORazepam 2 MG/ML INJ IV PRN ×5 (02:57→12:36)
[2021-05-20] MEDS: THIAMINE 100 MG TAB PO SCH (06:35)
[2021-05-20] MEDS: PANTOPRAZOLE 40 MG TABLET PO SCH (06:35)
[2021-05-20] MEDS: NICOTINE 21MG/24HR PATCH TRANSDERM SCH (09:16)
[2021-05-20] MEDS: METOPROLOL TARTRATE 12.5 MG TAB PO SCH (09:16)
[2021-05-20] MEDS: diazePAM 5 MG TAB PO SCH ×2 (09:16→12:36)
[2021-05-20] MEDS: HEPARIN SODIUM,PORCINE/PF 5,000 UNIT/0.5 ML SYRINGE SQ SCH (09:16)
[2021-05-20] MEDS: cloNIDine HCL 0.1 MG TAB PO SCH (09:16)
[2021-05-20 09:56] LABS: Basophils # (A) 0.1 k/uL (0-0.2); Basophils % (A) 1 %; Eosinophils # (A) 0.1 k/uL (0-0.7); Eosinophils % (A) 2 %; HCT 44.4 % (39.0-53.0); HGB 15.4 gm/dL (13.0-17.5); Lymphocytes # (A) 1.1 k/uL (1.0-4.8); Lymphocytes % (A) 19 %; MCH 37.4 pg (25.0-35.0); MCHC 34.6 g/dL (31.0-37.0); MCV 108.2 fL (80.0-100.0); Macrocytosis Moderate; Mean Platelet Volume 11.4; Monocytes # (A) 0.2 k/uL (0-1.0); Monocytes % (A) 4 %; Neutrophils # (A) 4.3 k/uL (1.3-7.7); Neutrophils % (A) 72 %; RDW 13.7 % (11.5-15.5)
[2021-05-20 10:08] LABS: Platelet Count 74 k/uL (150-450)
[2021-05-20] MEDS: MULTIVITAMINS, THERA 1 EACH TAB PO SCH (12:36)
[2021-05-20] MEDS: FOLIC ACID 1 MG TAB PO SCH (12:36)
[2021-05-20 12:43] VITALS: BP 123/88; PULSE 101; RESP 18; TEMP 97.8
--- NOTE | 2021-05-20 15:40 | DS ---
DISCHARGE SUMMARY DATE OF SERVICE: 05/20/2021. I am covering for Dr. Paula. FINAL DIAGNOSES: 1. Acute alcohol intoxication. 2. Acute delirium tremens. 3. Change in mental status acute metabolic encephalopathy multifactorial. 4. Tachycardia, sinus improved. 5. Hypertension. 6. Acute alcoholic hepatitis. 7. Gastroesophageal reflux disease. 8. History of seizure disorder. 9. Hypocalcemia. 10.Migraines. 11.History of OCD. 12.History of cholecystectomy. 13.History of attention-deficit disorder and attention-deficit/hyperactivity disorder. 14.History of borderline personality disorder. 15.History of nicotine dependence. 16.History of THC. 17.Hyponatremia. 18.Hypokalemia. DISCHARGE DISPOSITION: The patient being discharged in stable condition with guarded prognosis. The patient is extremely keen on going home. Psychiatry has cleared the patient for discharge. HISTORY OF PRESENT ILLNESS: This 30-year-old gentleman with a past medical history of multiple medical problems admitted with acute alcohol intoxication as well as acute delirium tremens. Patient was apparently petitioned but however psychiatric cleared the patient for discharge. The patient is supposed to go into rehab tomorrow, attend inpatient rehab, alcohol rehab tomorrow. At this time, the patient is keen on going home. The patient is stable. On exam, vitals signs stable. Cardiovascular: S1, S2. Abdomen soft. Nervous system: No focal deficits. DISCHARGE ADVICE AND MEDICATIONS: 1. Diet is regular. 2. Activity limited until follow up. 3. No EtOH. 4. Follow up with Dr. Paula in 1-2 days with CBC, CMP. 5. Drug and alcohol rehab as mentioned earlier, to attend AA. DISCHARGE MEDICATIONS: 1. Aspirin as before. 2. Remeron 15 mg q.h.s. 3. Seroquel 60 mg q.h.s. 4. Vortioxetine 20 mg q.h.s. 5. Ativan 1 mg t.i.d. p.r.n. 6. Catapres 0.1 mg b.i.d. 7. Folic acid 1 mg. 8. Multivitamins one p.o. daily. 9. Protonix 40 mg daily. 10.Tylenol p.r.n. 11.Thiamine 100 mg p.o. daily. Once again, the patient being discharged in stable with guarded prognosis. MMODL / IJN: [id number] /
== END 2021-05-20 15:37 | disposition home or self-care (01) | DRG 896 ==
LOC: EC 09:32 → 3SCARD 11:35
PROVIDERS: ADMIT Internal Medicine; ATTEND Internal Medicine
DX: F10.229 Alcohol dependence with intoxication, unspecified (principal); G92 Toxic encephalopathy; E87.1 Hypo-osmolality and hyponatremia; E83.42 Hypomagnesemia; E83.51 Hypocalcemia; E87.6 Hypokalemia; F17.200 Nicotine dependence, unspecified, uncomplicated; F10.231 Alcohol dependence with withdrawal delirium; F31.9 Bipolar disorder, unspecified; F41.9 Anxiety disorder, unspecified; F42.9 Obsessive-compulsive disorder, unspecified; F60.3 Borderline personality disorder; F90.9 Attention-deficit hyperactivity disorder, unspecified type; F98.8 Other specified behavioral and emotional disorders with onset usually occurring in childhood and adolescence; G31.2 Degeneration of nervous system due to alcohol; I10 Essential (primary) hypertension; K21.9 Gastro-esophageal reflux disease without esophagitis; K70.10 Alcoholic hepatitis without ascites; Y90.8 Blood alcohol level of 240 mg/100 ml or more; Z79.82 Long term (current) use of aspirin; Z90.49 Acquired absence of other specified parts of digestive tract; G43.909 Migraine, unspecified, not intractable, without status migrainosus; G40.909 Epilepsy, unspecified, not intractable, without status epilepticus
CPT/HCPCS: 36415; 71045; 80053; 80320; 81003; 82075; 83735; 85025; 96361; 96365; 99285